=== PATIENT | male | born 1990 | race Caucasian/White ===

== ENCOUNTER 2018-07-07 03:58 | Emergency (ER) | payer OTHER ==
[2018-07-07 04:48] LABS: Basophils % (A) 1 %; Eosinophils # (A) 0.2 k/uL (0-0.7); Eosinophils % (A) 3 %; HCT 43.3 % (39.0-53.0); HGB 13.8 gm/dL (13.0-17.5); Lymphocytes # (A) 2.7 k/uL (1.0-4.8); Lymphocytes % (A) 33 %; MCH 32.5 pg (25.0-35.0); MCHC 31.8 g/dL (31.0-37.0); MCV 102.1 fL (80.0-100.0); Macrocytosis Slight; Mean Platelet Volume 7.4; Monocytes # (A) 0.4 k/uL (0-1.0); Monocytes % (A) 5 %; Neutrophils # (A) 4.5 k/uL (1.3-7.7); Neutrophils % (A) 56 %; Platelet Count 296 k/uL (150-450); RBC 4.24 m/uL (4.30-5.90)
--- NOTE | 2018-07-07 04:51 | ED ---
Seizure HPI - General Chief Complaint: Seizure Stated Complaint: seizure Time Seen by Provider: 07/07/18 04:07 Source: patient, family, EMS Mode of arrival: EMS Limitations: no limitations - History of Present Illness Initial Comments: This patient is 28-year-old man who presents after having had a suspected seizure. The patient does have known seizure disorder though states he was having relatively good seizure control up until a few months ago. He states that he remembers going to bed tonight and then waking up and there were people around him and being told that he was suspected of having had a seizure. The patient's partner is here with him and states that she had been awakened by shaking and saw that he was having seizure activity, and called EMS. The patient does admit that he had missed a dose of Keppra. The patient denies having any injury related to seizure. He states he has just a little bit of headache but he always has this following a seizure. He states that he feels otherwise back his baseline. MD Complaint: seizure -: minutes(s) Description of Episode: tonic-clonic movement -: second(s) Witnessed: yes - by bystander Trauma: No Seizure History: known seizure disorder Place: home Possible Precipitating Event: other Associated Symptoms: denies other symptoms Treatments Prior to Arrival: none - Related Data Allergies Allergy/AdvReac Type Severity Reaction Status Date / Time cat dander Allergy Itching Verified 07/07/18 04:05 Review of Systems ROS Statement: Those systems with pertinent positive or pertinent negative responses have been documented in the HPI. ROS Other: All systems not noted in ROS Statement are negative. Constitutional: Denies: fever, chills Eyes: Denies: vision change Respiratory: Denies: cough, dyspnea Cardiovascular: Denies: chest pain, palpitations Gastrointestinal: Denies: abdominal pain, vomiting, diarrhea Genitourinary: Denies: dysuria Musculoskeletal: Denies: back pain Skin: Denies: rash Neurological: Reports: headache. Denies: weakness, numbness, paresthesias, confusion Past Medical History Past Medical History: Asthma, Seizure Disorder History of Any Multi-Drug Resistant Organisms: None Reported Past Surgical History: No Surgical Hx Reported Smoking Status: Former smoker Past Alcohol Use History: None Reported General Exam Limitations: no limitations General appearance: alert, in no apparent distress Head exam: Present: atraumatic, normocephalic Eye exam: Present: normal appearance, PERRL, EOMI. Absent: scleral icterus, conjunctival injection ENT exam: Present: normal oropharynx Neck exam: Present: normal inspection, full ROM. Absent: tenderness, meningismus Respiratory exam: Present: normal lung sounds bilaterally. Absent: respiratory distress, wheezes, rales, rhonchi, stridor Cardiovascular Exam: Present: regular rate, normal rhythm, normal heart sounds. Absent: systolic murmur, diastolic murmur, rubs, gallop GI/Abdominal exam: Present: soft. Absent: distended, tenderness, guarding, rebound, rigid, mass Extremities exam: Present: normal inspection, normal capillary refill. Absent: pedal edema, calf tenderness Back exam: Present: normal inspection. Absent: CVA tenderness (R), CVA tenderness (L), vertebral tenderness Neurological exam: Present: alert, oriented X3, CN II-XII intact. Absent: motor sensory deficit Skin exam: Present: warm, dry, intact, normal color. Absent: rash Course Vital Signs 07/07/18 04:00 Temperature 99.8 F H Pulse Rate 93 Respiratory 16 Rate Blood Pressure 132/84 O2 Sat by Pulse 98 Oximetry - Reevaluation(s) Reevaluation #1: 07/07/18 06:40 28-year-old man with known history of seizure disorder. The patient was back his baseline and was about to be discharged when he did have another generalized tonic-clonic seizure. He was given 2 mg of Ativan, but the seizure had stopped spontaneously just prior to his receiving the dose of medication. Given that the patient had another seizure, I will provide a loading dose of Keppra and the patient will be observed here, his lungs he does return to baseline without complications may go home and have follow-up with his neurologist, otherwise to be admitted here for neurology consultation. Pending observation at times of sign out Medical Decision Making - Lab Data Result diagrams: 07/07/18 04:09 07/07/18 04:09 Lab Results 07/07/18 07/07/18 Range/Units 04:09 04:09 WBC 8.0 (3.8-10.6) k/uL RBC 4.24 L (4.30-5.90) m/uL Hgb 13.8 (13.0-17.5) gm/dL Hct 43.3 (39.0-53.0) % MCV 102.1 H (80.0-100.0) fL MCH 32.5 (25.0-35.0) pg MCHC 31.8 (31.0-37.0) g/dL RDW 14.0 (11.5-15.5) % Plt Count 296 (150-450) k/uL Neutrophils % 56 % Lymphocytes % 33 % Monocytes % 5 % Eosinophils % 3 % Basophils % 1 % Neutrophils # 4.5 (1.3-7.7) k/uL Lymphocytes # 2.7 (1.0-4.8) k/uL Monocytes # 0.4 (0-1.0) k/uL Eosinophils # 0.2 (0-0.7) k/uL Basophils # 0.0 (0-0.2) k/uL Macrocytosis Slight Sodium 143 (137-145) mmol/L Potassium 4.2 (3.5-5.1) mmol/L Chloride 109 H (98-107) mmol/L Carbon Dioxide 16 L (22-30) mmol/L Anion Gap 18 mmol/L BUN 18 (9-20) mg/dL Creatinine 0.79 (0.66-1.25) mg/dL Est GFR (CKD-EPI)AfAm >90 (>60 ml/min/1.73 sqM) Est GFR (CKD-EPI)NonAf >90 (>60 ml/min/1.73 sqM) Glucose 91 (74-99) mg/dL Calcium 9.6 (8.4-10.2) mg/dL Total Bilirubin 0.5 (0.2-1.3) mg/dL AST 30 (17-59) U/L ALT 32 (21-72) U/L Alkaline Phosphatase 46 (38-126) U/L Total Protein 7.8 (6.3-8.2) g/dL Albumin 4.9 (3.5-5.0) g/dL - EKG Data -: EKG Interpreted by Mt EKG shows normal: sinus rhythm, axis (Normal), intervals (Normal), QRS complexes (Normal), ST-T waves (Normal) Rate: normal (Rate 89 bpm) Interpretation: normal EKG Disposition Clinical Impression: Generalized seizure Disposition: HOME SELF-CARE Condition: Good Instructions: Recurrent Seizures in Adults (ED) Is patient prescribed a controlled substance at d/c from ED?: No Referrals: Lambert Oropeza MD [Primary Care Provider] - 1-2 days Dev Aranda DO [STAFF PHYSICIAN] - 1-2 days
[2018-07-07 04:58] LABS: ALT 32 U/L (21-72); AST 30 U/L (17-59); Albumin 4.9 g/dL (3.5-5.0); Alkaline Phosphatase 46 U/L (38-126); Anion Gap 18 mmol/L; Blood Urea Nitrogen 18 mg/dL (9-20); Calcium 9.6 mg/dL (8.4-10.2); Carbon Dioxide 16 mmol/L (22-30); Chloride 109 mmol/L (98-107); Glucose 91 mg/dL (74-99); Sodium 143 mmol/L (137-145); Total Bilirubin 0.5 mg/dL (0.2-1.3); Total Protein 7.8 g/dL (6.3-8.2)
[2018-07-07 05:01] LABS: Potassium 4.2 mmol/L (3.5-5.1)
[2018-07-07] MEDS ORDERED: levETIRAcetam 500 MG TAB PO STA (06:39)
[2018-07-07] MEDS ORDERED: LORazepam 2 MG/ML INJ IM STA (06:40)
[2018-07-07 06:55] VITALS: RESP 18
[2018-07-07 09:39] VITALS: BP 112/67; PULSE 80; TEMP 98.9
== END 2018-07-07 08:49 | disposition home or self-care (01) ==
LOC: EC 03:58
DX: G40.89 Other seizures (principal); Z87.891 Personal history of nicotine dependence; Z91.048 Other nonmedicinal substance allergy status
CPT/HCPCS: 36415; 93005; 80053; 80177; 85025; 99284; 96372; J2060

== ENCOUNTER 2019-04-03 18:02 | Inpatient (IN) | payer OTHER ==
[2019-04-03 19:40] LABS: Basophils # (A) 0.2 k/uL (0-0.2); Basophils % (A) 2 %; Eosinophils # (A) 0.4 k/uL (0-0.7); Eosinophils % (A) 3 %; HCT 44.5 % (39.0-53.0); HGB 14.7 gm/dL (13.0-17.5); Lymphocytes # (A) 2.3 k/uL (1.0-4.8); Lymphocytes % (A) 22 %; MCH 32.1 pg (25.0-35.0); MCHC 33.1 g/dL (31.0-37.0); Mean Platelet Volume 7.4; Monocytes # (A) 0.5 k/uL (0-1.0); Monocytes % (A) 5 %; Neutrophils # (A) 7.1 k/uL (1.3-7.7); Neutrophils % (A) 66 %; Platelet Count 256 k/uL (150-450); RBC 4.59 m/uL (4.30-5.90); RDW 14.1 % (11.5-15.5); WBC 10.8 k/uL (3.8-10.6)
[2019-04-03 19:44] LABS: Ionized Calcium 5.1 mg/dL (4.5-5.3)
[2019-04-03 19:50] LABS: INR 0.9 (<1.2); Partial Thromboplastin Time 24.9 sec (22.0-30.0); Prothrombin Time 9.8 sec (9.0-12.0)
[2019-04-03 19:55] LABS: ALT 35 U/L (21-72); AST 31 U/L (17-59); African American GFR (CKD) >90 (>60 ml/min/1.73 sqM); Albumin 4.9 g/dL (3.5-5.0); Alkaline Phosphatase 64 U/L (38-126); Anion Gap 11 mmol/L; Blood Urea Nitrogen 17 mg/dL (9-20); Calcium 10.2 mg/dL (8.4-10.2); Carbon Dioxide 26 mmol/L (22-30); Chloride 104 mmol/L (98-107); Creatine Kinase 127 U/L (55-170); Glucose 93 mg/dL (74-99); Magnesium 2.4 mg/dL (1.6-2.3); Potassium 4.2 mmol/L (3.5-5.1); Sodium 141 mmol/L (137-145); Total Bilirubin 0.3 mg/dL (0.2-1.3); Total Protein 8.3 g/dL (6.3-8.2)
--- NOTE | 2019-04-03 20:11 | CT ---
EXAMINATION: CT brain wo con DATE AND TIME: 04/03/2019 7:53 PM CLINICAL INDICATION: Bilateral numbness feet, hands; pain TECHNIQUE: Standard departmental protocol.; 1096; COMPARISON: None. FINDINGS: The calvarium is intact. There is no intracranial hemorrhage. There is no intracranial mass or mass effect. No definite new intra-axial or extra-axial attenuation defect. The paranasal sinuses, middle ear cavities, and mastoid sinus air cells are clear. The orbits are unremarkable. IMPRESSION: NO ACUTE PROCESS.
--- NOTE | 2019-04-03 20:37 | CT ---
EXAMINATION TYPE: CT angio head neck with contrast and with 3-D reconstruction renderings DATE OF EXAM: 04/03/2019 HISTORY: Numbness bilateral feet/hands. Pt denies heart hx. COMPARISON: CT head without contrast 04/03/2019 at 7:[address] DLP: 508.4 mGycm. Automated Exposure Control for Dose Reduction was Utilized. TECHNIQUE: CTA scan of the neck is performed with IV Contrast, patient injected with 50 mL of Isovue 370, axial images are obtained, coronal and sagittal reformatted images are reviewed. Three-D recons tructed images are created on an independent workstation and reviewed. FINDINGS: The bilateral carotid arterial systems are widely patent without significant findings throughout thei r extent. The bilateral vertebral arterial systems are widely patent without significant findings thr oughout their extent. The intracranial anterior and posterior circulation are widely patent without significant findings. The visualized intracranial and intraspinal structures are unremarkable as seen. Airways and visualized lung apices: Unremarkable. Soft tissues of the neck: Unremarkable. Skeletal structures: No acute findings. IMPRESSION: No significant abnormality is seen.
--- NOTE | 2019-04-03 20:43 | XR ---
EXAMINATION: XR chest 2V DATE AND TIME: 04/03/2019 7:49 PM CLINICAL INDICATION: PHH; Weakness TECHNIQUE: Departmental protocol COMPARISON: 03/04/2008 FINDINGS: The lungs are clear. The pleural spaces are negative. The cardiac silhouette is not enlarged. The remainder of the mediastinal silhouette is unremarkable. The skeletal structures and soft tissues are negative for acute findings. IMPRESSION: NO ACUTE PROCESS.
[2019-04-03] MEDS ORDERED: NALOXONE 0.4 MG/ML 1 ML VIAL IV PRN (22:07)
--- NOTE | 2019-04-03 22:07 | ED ---
General Adult HPI - General Chief complaint: Extremity Problem,Nontraumatic Stated complaint: Numbness hands/feet Time Seen by Provider: 04/03/19 18:15 Source: patient Mode of arrival: wheelchair Limitations: no limitations - History of Present Illness Initial comments: The patient is a 21-year-old male who presents to the emergency department with reported ascending neuropathy for the past 3 weeks. The patient does report a history of seizure disorder. He has been on Keppra for many years. He does see Dr. Aranda. States that he did not have any seizures up until last June. States that steadily since then he has had 2-3 seizures per month. His last seizure was one month ago. Reports that shortly after that he began having neuropathy in his feet which then ascended to his calf and then up to his thigh. Reports that as of a week ago it started affecting his hands. He reports that his symptoms are bilateral. Mother reports that the patient has an ataxic gait. Patient does feel off balance when ambulating. Denies any confusion, slurred speech or facial droop. No report of neck pain or back pain. Denies any trauma. Reports that he feels weak in his extremities. 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 He denies any blunt head trauma. No history of similar in the past. No family history of muscular dystrophy. Reports he did see a chiropractor a week ago who adjusted his whole spine. He denies a headache or visual changes. No fevers or chills. There are no other alleviating, precipitating or modifying factors - Related Data Home Medications Medication Instructions Recorded Confirmed Budesonide-Formot 160-4.5 Mcg 2 puff INHALATION RT-BID PRN 07/07/18 04/03/19 [Symbicort 160-4.5 Mcg Inhaler] levETIRAcetam [Keppra] 1,000 mg PO BID 04/03/19 04/03/19 Previous Rx's Medication Instructions Recorded Cyanocobalamin [Vitamin B-12] 1,000 mcg PO WEEKLY #8 tab 04/08/19 Nicotine 21Mg/24Hr Patch [Habitrol] 1 patch TRANSDERM DAILY #14 patch 04/08/19 Allergies Allergy/AdvReac Type Severity Reaction Status Date / Time cat dander AdvReac Itching Verified 04/03/19 18:37 Review of Systems ROS Statement: Those systems with pertinent positive or pertinent negative responses have been documented in the HPI. ROS Other: All systems not noted in ROS Statement are negative. Past Medical History Past Medical History: Asthma, Seizure Disorder History of Any Multi-Drug Resistant Organisms: None Reported Past Surgical History: No Surgical Hx Reported Past Psychological History: No Psychological Hx Reported Smoking Status: Current every day smoker Past Alcohol Use History: Rare Past Drug Use History: Marijuana - Past Family History Father Family Medical History: GERD/Reflux Mother Family Medical History: Hypertension General Exam Limitations: no limitations General appearance: alert, in no apparent distress Head exam: Present: atraumatic, normocephalic, normal inspection Eye exam: Present: normal appearance, PERRL, EOMI. Absent: scleral icterus, conjunctival injection, periorbital swelling ENT exam: Present: normal exam, mucous membranes moist Neck exam: Present: normal inspection. Absent: tenderness, meningismus, lymphadenopathy Respiratory exam: Present: normal lung sounds bilaterally. Absent: respiratory distress, wheezes, rales, rhonchi, stridor Cardiovascular Exam: Present: regular rate, normal rhythm, normal heart sounds. Absent: systolic murmur, diastolic murmur, rubs, gallop, clicks GI/Abdominal exam: Present: soft, normal bowel sounds. Absent: distended, tenderness, guarding, rebound, rigid Extremities exam: Present: normal inspection, full ROM, normal capillary refill. Absent: tenderness, pedal edema, joint swelling, calf tenderness Back exam: Present: normal inspection Neurological exam: Present: alert, oriented X3, CN II-XII intact, other (2/4 reflexes in all extremities. No truncal ataxia. No pronator drift. Intact 2 pt discrimination and soft touch) Psychiatric exam: Present: normal affect, normal mood Skin exam: Present: warm, dry, intact, normal color. Absent: rash Course Vital Signs 04/03/19 04/03/19 04/03/19 18:13 19:29 20:26 Temperature 99.6 F Pulse Rate 103 H 101 H 95 Respiratory 18 18 18 Rate Blood Pressure 177/95 137/97 118/73 O2 Sat by Pulse 99 98 100 Oximetry 04/03/19 23:04 Temperature 98.7 F Pulse Rate 106 H Respiratory 18 Rate Blood Pressure 129/102 O2 Sat by Pulse 96 Oximetry EKG Findings - EKG Comments: EKG Findings:: EKG demonstrates a normal sinus rhythm with a ventricular rate of 102. KS interval 154. QRS 82. QTC 435. There are no acute ST segment elevations Medical Decision Making - Medical Decision Making Upon arrival the patient was placed into room 1. He is hooked up to continuous pulse ox and cardiac monitoring. A 12-lead EKG is performed on the patient. Peripheral IV was established. I did perform a complete neuro exam which demonstrated no lateralizing deficits. Weakness is not appreciated. The patient has intact sensation and reflexes. I did recommend laboratory studies and a CT of the patient's brain. I also performed CT angios of the patient's head because of the reported ataxia. Upon return of the results I did discuss them with the patient. I did call and discuss the case Dr. Worley. I will place Dr. Pardo on consult. I did call discuss the case with her. She was requesting that I attempt a lumbar puncture. I discussed the procedure with the patient. Verbal and written consent was obtained. I did attempt a lumbar puncture however I was unsuccessful at collecting CSF fluid. I did make 2 attempts. I did admit the patient to hospital. I will consult IR for lumbar puncture. The patient was in agreement with the treatment plan and was transferred to the floor in stable condition - Lab Data Result diagrams: 04/04/19 07:11 04/04/19 07:11 Lab Results 04/03/19 04/03/19 04/03/19 Range/Units 19:28 19:28 19:28 WBC 10.8 H (3.8-10.6) k/uL RBC 4.59 (4.30-5.90) m/uL Hgb 14.7 (13.0-17.5) gm/dL Hct 44.5 (39.0-53.0) % MCV 97.0 (80.0-100.0) fL MCH 32.1 (25.0-35.0) pg MCHC 33.1 (31.0-37.0) g/dL RDW 14.1 (11.5-15.5) % Plt Count 256 (150-450) k/uL Neutrophils % 66 % Lymphocytes % 22 % Monocytes % 5 % Eosinophils % 3 % Basophils % 2 % Neutrophils # 7.1 (1.3-7.7) k/uL Lymphocytes # 2.3 (1.0-4.8) k/uL Monocytes # 0.5 (0-1.0) k/uL Eosinophils # 0.4 (0-0.7) k/uL Basophils # 0.2 (0-0.2) k/uL Macrocytosis PT 9.8 (9.0-12.0) sec INR 0.9 (<1.2) APTT 24.9 (22.0-30.0) sec Sodium 141 (137-145) mmol/L Potassium 4.2 (3.5-5.1) mmol/L Chloride 104 (98-107) mmol/L Carbon Dioxide 26 (22-30) mmol/L Anion Gap 11 mmol/L BUN 17 (9-20) mg/dL Creatinine 0.86 (0.66-1.25) mg/dL Est GFR (CKD-EPI)AfAm >90 (>60 ml/min/1.73 sqM) Est GFR (CKD-EPI)NonAf >90 (>60 ml/min/1.73 sqM) Glucose 93 (74-99) mg/dL Estimated Ave Glu mg/dL Hemoglobin A1c (4.0-6.0) % Calcium 10.2 (8.4-10.2) mg/dL Ionized Calcium Santiago 5.1 (4.5-5.3) mg/dL Magnesium 2.4 H (1.6-2.3) mg/dL Total Bilirubin 0.3 (0.2-1.3) mg/dL AST 31 (17-59) U/L ALT 35 (21-72) U/L Alkaline Phosphatase 64 (38-126) U/L Creatine Kinase 127 (55-170) U/L NT-Pro-B Natriuret Pep pg/mL Total Protein 8.3 H (6.3-8.2) g/dL Albumin 4.9 (3.5-5.0) g/dL Vitamin B6 (5-50) ug/L Vitamin B12 (200.0-944.0) pg/mL Vit D 1,25-Dihydroxy (20 - 79) pg/mL Alpha-Tocopherol (500-1800) ug/dL Folate ng/mL TSH 2.210 (0.465-4.680) mIU/L CSF Tube Number CSF Volume CSF Appearance CSF Color CSF RBC (0-10) u/L CSF Tot Nucleated Cells (0-5) u/L CSF Glucose (40-70) mg/dL CSF Total Protein (12-60) mg/dL CSF Albumin (0.0 - 35.0) mg/dL CSF IgG (MS) (0.0 - 3.4) mg/dL Serum Albumin (3500 - 5200) mg/dL CSF IgG/Alb Ratio MS (0.00 - 0.77) CSF IgG Synth Rate MS (0.00 - 3.00) mg/day CSF Oligoclonal Bands IgG (700 - 1600) mg/dL IgA (60.0-350.0) mg/dL MARNI Screen (NEGATIVE) Treponema pallidum Ab (Non-Reactive) 04/03/19 04/03/19 04/04/19 Range/Units 19:28 19:28 07:11 WBC 7.2 (3.8-10.6) k/uL RBC 4.49 (4.30-5.90) m/uL Hgb 14.8 (13.0-17.5) gm/dL Hct 44.3 (39.0-53.0) % MCV 98.6 (80.0-100.0) fL MCH 33.0 (25.0-35.0) pg MCHC 33.4 (31.0-37.0) g/dL RDW 15.4 (11.5-15.5) % Plt Count 271 (150-450) k/uL Neutrophils % 56 % Lymphocytes % 29 % Monocytes % 7 % Eosinophils % 4 % Basophils % 1 % Neutrophils # 4.0 (1.3-7.7) k/uL Lymphocytes # 2.1 (1.0-4.8) k/uL Monocytes # 0.5 (0-1.0) k/uL Eosinophils # 0.3 (0-0.7) k/uL Basophils # 0.1 (0-0.2) k/uL Macrocytosis Slight PT (9.0-12.0) sec INR (<1.2) APTT (22.0-30.0) sec Sodium (137-145) mmol/L Potassium (3.5-5.1) mmol/L Chloride (98-107) mmol/L Carbon Dioxide (22-30) mmol/L Anion Gap mmol/L BUN (9-20) mg/dL Creatinine (0.66-1.25) mg/dL Est GFR (CKD-EPI)AfAm (>60 ml/min/1.73 sqM) Est GFR (CKD-EPI)NonAf (>60 ml/min/1.73 sqM) Glucose (74-99) mg/dL Estimated Ave Glu mg/dL Hemoglobin A1c (4.0-6.0) % Calcium (8.4-10.2) mg/dL Ionized Calcium Santiago (4.5-5.3) mg/dL Magnesium (1.6-2.3) mg/dL Total Bilirubin (0.2-1.3) mg/dL AST (17-59) U/L ALT (21-72) U/L Alkaline Phosphatase (38-126) U/L Creatine Kinase (55-170) U/L NT-Pro-B Natriuret Pep 17 pg/mL Total Protein (6.3-8.2) g/dL Albumin (3.5-5.0) g/dL Vitamin B6 (5-50) ug/L Vitamin B12 (200.0-944.0) pg/mL Vit D 1,25-Dihydroxy (20 - 79) pg/mL Alpha-Tocopherol (500-1800) ug/dL Folate ng/mL TSH (0.465-4.680) mIU/L CSF Tube Number CSF Volume CSF Appearance CSF Color CSF RBC (0-10) u/L CSF Tot Nucleated Cells (0-5) u/L CSF Glucose (40-70) mg/dL CSF Total Protein (12-60) mg/dL CSF Albumin (0.0 - 35.0) mg/dL CSF IgG (MS) (0.0 - 3.4) mg/dL Serum Albumin (3500 - 5200) mg/dL CSF IgG/Alb Ratio MS (0.00 - 0.77) CSF IgG Synth Rate MS (0.00 - 3.00) mg/day CSF Oligoclonal Bands IgG (700 - 1600) mg/dL IgA (60.0-350.0) mg/dL MARNI Screen NEGATIVE (NEGATIVE) Treponema pallidum Ab (Non-Reactive) 04/04/19 04/04/19 04/04/19 Range/Units 07:11 07:11 12:20 WBC (3.8-10.6) k/uL RBC (4.30-5.90) m/uL Hgb (13.0-17.5) gm/dL Hct (39.0-53.0) % MCV (80.0-100.0) fL MCH (25.0-35.0) pg MCHC (31.0-37.0) g/dL RDW (11.5-15.5) % Plt Count (150-450) k/uL Neutrophils % % Lymphocytes % % Monocytes % % Eosinophils % % Basophils % % Neutrophils # (1.3-7.7) k/uL Lymphocytes # (1.0-4.8) k/uL Monocytes # (0-1.0) k/uL Eosinophils # (0-0.7) k/uL Basophils # (0-0.2) k/uL Macrocytosis PT (9.0-12.0) sec INR (<1.2) APTT (22.0-30.0) sec Sodium 144 (137-145) mmol/L Potassium 4.7 (3.5-5.1) mmol/L Chloride 103 (98-107) mmol/L Carbon Dioxide 32 H (22-30) mmol/L Anion Gap 9 mmol/L BUN 17 (9-20) mg/dL Creatinine 0.93 (0.66-1.25) mg/dL Est GFR (CKD-EPI)AfAm >90 (>60 ml/min/1.73 sqM) Est GFR (CKD-EPI)NonAf >90 (>60 ml/min/1.73 sqM) Glucose 89 (74-99) mg/dL Estimated Ave Glu mg/dL Hemoglobin A1c (4.0-6.0) % Calcium 9.9 (8.4-10.2) mg/dL Ionized Calcium Santiago (4.5-5.3) mg/dL Magnesium (1.6-2.3) mg/dL Total Bilirubin (0.2-1.3) mg/dL AST (17-59) U/L ALT (21-72) U/L Alkaline Phosphatase (38-126) U/L Creatine Kinase (55-170) U/L NT-Pro-B Natriuret Pep pg/mL Total Protein (6.3-8.2) g/dL Albumin (3.5-5.0) g/dL Vitamin B6 (5-50) ug/L Vitamin B12 (200.0-944.0) pg/mL Vit D 1,25-Dihydroxy (20 - 79) pg/mL Alpha-Tocopherol (500-1800) ug/dL Folate ng/mL TSH (0.465-4.680) mIU/L CSF Tube Number 4 CSF Volume 2.3 CSF Appearance Clear CSF Color Colorless CSF RBC 1 (0-10) u/L CSF Tot Nucleated Cells 1 (0-5) u/L CSF Glucose 52 (40-70) mg/dL CSF Total Protein 78 H (12-60) mg/dL CSF Albumin 47.9 H (0.0 - 35.0) mg/dL CSF IgG (MS) 4.7 H (0.0 - 3.4) mg/dL Serum Albumin 4,650 (3500 - 5200) mg/dL CSF IgG/Alb Ratio MS 0.44 (0.00 - 0.77) CSF IgG Synth Rate MS 0.00 (0.00 - 3.00) mg/day CSF Oligoclonal Bands See Below IgG 1,040 (700 - 1600) mg/dL IgA (60.0-350.0) mg/dL MARNI Screen (NEGATIVE) Treponema pallidum Ab (Non-Reactive) 04/04/19 04/04/19 04/04/19 Range/Units 16:12 16:12 16:12 WBC (3.8-10.6) k/uL RBC (4.30-5.90) m/uL Hgb (13.0-17.5) gm/dL Hct (39.0-53.0) % MCV (80.0-100.0) fL MCH (25.0-35.0) pg MCHC (31.0-37.0) g/dL RDW (11.5-15.5) % Plt Count (150-450) k/uL Neutrophils % % Lymphocytes % % Monocytes % % Eosinophils % % Basophils % % Neutrophils # (1.3-7.7) k/uL Lymphocytes # (1.0-4.8) k/uL Monocytes # (0-1.0) k/uL Eosinophils # (0-0.7) k/uL Basophils # (0-0.2) k/uL Macrocytosis PT (9.0-12.0) sec INR (<1.2) APTT (22.0-30.0) sec Sodium (137-145) mmol/L Potassium (3.5-5.1) mmol/L Chloride (98-107) mmol/L Carbon Dioxide (22-30) mmol/L Anion Gap mmol/L BUN (9-20) mg/dL Creatinine (0.66-1.25) mg/dL Est GFR (CKD-EPI)AfAm (>60 ml/min/1.73 sqM) Est GFR (CKD-EPI)NonAf (>60 ml/min/1.73 sqM) Glucose (74-99) mg/dL Estimated Ave Glu mg/dL 97 Hemoglobin A1c 5.1 (4.0-6.0) % Calcium (8.4-10.2) mg/dL Ionized Calcium Santiago (4.5-5.3) mg/dL Magnesium (1.6-2.3) mg/dL Total Bilirubin (0.2-1.3) mg/dL AST (17-59) U/L ALT (21-72) U/L Alkaline Phosphatase (38-126) U/L Creatine Kinase (55-170) U/L NT-Pro-B Natriuret Pep pg/mL Total Protein (6.3-8.2) g/dL Albumin (3.5-5.0) g/dL Vitamin B6 (5-50) ug/L Vitamin B12 189.0 L (200.0-944.0) pg/mL Vit D 1,25-Dihydroxy 47 (20 - 79) pg/mL Alpha-Tocopherol 1382 (500-1800) ug/dL Folate 19.8 ng/mL TSH (0.465-4.680) mIU/L CSF Tube Number CSF Volume CSF Appearance CSF Color CSF RBC (0-10) u/L CSF Tot Nucleated Cells (0-5) u/L CSF Glucose (40-70) mg/dL CSF Total Protein (12-60) mg/dL CSF Albumin (0.0 - 35.0) mg/dL CSF IgG (MS) (0.0 - 3.4) mg/dL Serum Albumin (3500 - 5200) mg/dL CSF IgG/Alb Ratio MS (0.00 - 0.77) CSF IgG Synth Rate MS (0.00 - 3.00) mg/day CSF Oligoclonal Bands IgG (700 - 1600) mg/dL IgA (60.0-350.0) mg/dL MARNI Screen (NEGATIVE) Treponema pallidum Ab (Non-Reactive) 04/04/19 04/04/19 04/04/19 Range/Units 16:12 16:12 16:12 WBC (3.8-10.6) k/uL RBC (4.30-5.90) m/uL Hgb (13.0-17.5) gm/dL Hct (39.0-53.0) % MCV (80.0-100.0) fL MCH (25.0-35.0) pg MCHC (31.0-37.0) g/dL RDW (11.5-15.5) % Plt Count (150-450) k/uL Neutrophils % % Lymphocytes % % Monocytes % % Eosinophils % % Basophils % % Neutrophils # (1.3-7.7) k/uL Lymphocytes # (1.0-4.8) k/uL Monocytes # (0-1.0) k/uL Eosinophils # (0-0.7) k/uL Basophils # (0-0.2) k/uL Macrocytosis PT (9.0-12.0) sec INR (<1.2) APTT (22.0-30.0) sec Sodium (137-145) mmol/L Potassium (3.5-5.1) mmol/L Chloride (98-107) mmol/L Carbon Dioxide (22-30) mmol/L Anion Gap mmol/L BUN (9-20) mg/dL Creatinine (0.66-1.25) mg/dL Est GFR (CKD-EPI)AfAm (>60 ml/min/1.73 sqM) Est GFR (CKD-EPI)NonAf (>60 ml/min/1.73 sqM) Glucose (74-99) mg/dL Estimated Ave Glu mg/dL Hemoglobin A1c (4.0-6.0) % Calcium (8.4-10.2) mg/dL Ionized Calcium Santiago (4.5-5.3) mg/dL Magnesium (1.6-2.3) mg/dL Total Bilirubin (0.2-1.3) mg/dL AST (17-59) U/L ALT (21-72) U/L Alkaline Phosphatase (38-126) U/L Creatine Kinase (55-170) U/L NT-Pro-B Natriuret Pep pg/mL Total Protein (6.3-8.2) g/dL Albumin (3.5-5.0) g/dL Vitamin B6 30 (5-50) ug/L Vitamin B12 (200.0-944.0) pg/mL Vit D 1,25-Dihydroxy (20 - 79) pg/mL Alpha-Tocopherol (500-1800) ug/dL Folate ng/mL TSH (0.465-4.680) mIU/L CSF Tube Number CSF Volume CSF Appearance CSF Color CSF RBC (0-10) u/L CSF Tot Nucleated Cells (0-5) u/L CSF Glucose (40-70) mg/dL CSF Total Protein (12-60) mg/dL CSF Albumin (0.0 - 35.0) mg/dL CSF IgG (MS) (0.0 - 3.4) mg/dL Serum Albumin (3500 - 5200) mg/dL CSF IgG/Alb Ratio MS (0.00 - 0.77) CSF IgG Synth Rate MS (0.00 - 3.00) mg/day CSF Oligoclonal Bands IgG (700 - 1600) mg/dL IgA 295.0 (60.0-350.0) mg/dL MARNI Screen (NEGATIVE) Treponema pallidum Ab Non-Reactive (Non-Reactive) Disposition Clinical Impression: Neuropathy Disposition: ADMITTED IP TO THIS [facility] Condition: Stable Is patient prescribed a controlled substance at d/c from ED?: No Decision to Admit Reason: Admit from EC Decision Date: 04/03/19 Decision Time: 22:07
[2019-04-03] MEDS ORDERED: LIDOCAINE 1% INJ 10MG/ML (20 ML MDV) SQ ONE (22:28)
[2019-04-03] MEDS ORDERED: fentaNYL (PF) 50 MCG/ML 2 ML AMP IVP ONE (23:00)
[2019-04-03] MEDS: levETIRAcetam 500 MG TAB PO SCH (23:06)
[2019-04-04 07:45] LABS: Basophils # (A) 0.1 k/uL (0-0.2); Basophils % (A) 1 %; Eosinophils # (A) 0.3 k/uL (0-0.7); Eosinophils % (A) 4 %; HCT 44.3 % (39.0-53.0); HGB 14.8 gm/dL (13.0-17.5); Lymphocytes # (A) 2.1 k/uL (1.0-4.8); Lymphocytes % (A) 29 %; MCHC 33.4 g/dL (31.0-37.0); MCV 98.6 fL (80.0-100.0); Macrocytosis Slight; Mean Platelet Volume 7.9; Monocytes # (A) 0.5 k/uL (0-1.0); Monocytes % (A) 7 %; Neutrophils % (A) 56 %; Platelet Count 271 k/uL (150-450); RBC 4.49 m/uL (4.30-5.90); RDW 15.4 % (11.5-15.5); WBC 7.2 k/uL (3.8-10.6)
[2019-04-04 08:08] LABS: African American GFR (CKD) >90 (>60 ml/min/1.73 sqM); Anion Gap 9 mmol/L; Blood Urea Nitrogen 17 mg/dL (9-20); Calcium 9.9 mg/dL (8.4-10.2); Carbon Dioxide 32 mmol/L (22-30); Chloride 103 mmol/L (98-107); Glucose 89 mg/dL (74-99); Potassium 4.7 mmol/L (3.5-5.1); Sodium 144 mmol/L (137-145)
[2019-04-04] MEDS: levETIRAcetam 500 MG TAB PO SCH ×2 (09:08→21:02)
[2019-04-04 13:41] LABS: Glucose,CSF 52 mg/dL (40-70); Total Protein,CSF 78 mg/dL (12-60)
--- NOTE | 2019-04-04 14:59 | FL ---
Lumbar puncture INDICATION: Pain weakness lower extremities FINDINGS: Fluoroscopy time: 9 seconds. Images obtained: 0. The procedure was explained to the patient. Risks complications and benefits were discussed. Alternat percy were discussed. All questions were answered. Informed consent was obtained. A timeout was performed. The L4-L5 level was chosen for access. Maximum barrier sterile technique was utilized. The skin was c leansed with Betadine and the patient sterilely prepped and draped in the usual manner. The skin and deeper tissue was anesthetized with 1% Lidocaine. Utilizing an 18-gauge spinal needle the spinal maxime l was accessed. Good CSF return was evident. A total of 4 tubes with 3 mL clear CSF were obtained for total of 12 mL. The stylette was replaced and the needle withdrawn. Specimen tubes were labeled and transferred to pathology for additional evaluation. The patient tolerated the procedure well. Procedure instructions were discussed with the patient. The patient was transferred to his room for additional monitoring. Findings: Clear CSF. Specimens sent to pathology for closer evaluation. IMPRESSIONS: 1. Successful Lumbar Puncture for CSF acquisition for analysis.
[2019-04-04 15:22] LABS: Appearance,CSF Clear; CSF Tube Number 4
[2019-04-04 15:23] LABS: CSF Tube Volume 2.3; Nucleated Cells, CSF 1 u/L (0-5); Red Blood Cell,CSF 1 u/L (0-10)
[2019-04-04] MEDS: ACETAMINOPHEN TAB 325 MG TAB PO PRN (16:00)
--- NOTE | 2019-04-04 17:25 | P.HPIM ---
History of Present Illness H&P Date: 04/04/19 Chief Complaint: Numbness and weakness in the hands and legs History of presenting complaint: This is a 29-year-old patient of Dr. Oropeza. About a month ago patient had an episode of seizure. Subsequent to that he was on the ladder was about to fall and decided to jump off. They felt off of that he noticed some tingling in his feet. Subsequent that he's been noticing that this more tingling and numbness in his feet and also being finding it troubled to walk because of weakness. He also notices the symptoms of both his hands. Does no pain in the neck. No pain in the back. Denies any respiratory or diarrheal disease. No fever no chills. Though he feels that his asthma has been acting up a bit. It may be noted that patient is also smoker. Patient is brought into the ER. Neurology was consulted. Lumbar puncture was ordered. Review of systems: GEN.: Tired EYES: None HEENT: None NECK: None RESPIRATORY: Occasional wheezing CARDIOVASCULAR: None GASTROINTESTINAL: None GENITOURINARY: None MUSCULOSKELETAL: None LYMPHATICS: None HEMATOLOGICAL: None PSYCHIATRY: None NEUROLOGICAL: As above Past medical history: Asthma, seizure Social history: Smokes anywhere from half to a pack a day. Lives with his fiance. 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 Does marijuana occasionally. Physical examination: VITAL SIGNS: 99.6, 103, 18, 1 37 x 97, 98% room air GENERAL: BMI 29.8, laying in bed not in distress. EYES: Pupils equal. Conjunctiva normal. HEENT: External appearance of nose and ears normal, oral cavity grossly normal. NECK: JVD not raised; masses not palpable. HEART: First and second heart sounds are normal; no edema. LUNGS: Respiratory rate normal; clear to auscultation. ABDOMEN: Soft, nontender, liver spleen not palpable, no masses palpable. PSYCH: Alert and oriented x3; mood and affect normal. NEUROLOGICAL: Cranial nerves grossly intact; no facial asymmetry, decreased power in both lower extremity and decreased sensation, below mid thigh down to the feet. Patient's reflexes are down symmetrically in both lower extremity. Patient also was discrete sensation in both the arms distally.. LYMPHATICS: No lymph nodes palpable in the axilla and neck INVESTIGATIONS, reviewed in the clinical context: White count 10.8 repeat 7.2 hemoglobin 40.7 potassium 4.2 creatinine 0.86 Computed tomography scan of brain-unremarkable CT angiogram of the neck negative EKG tracing personally reviewed by me-sinus rhythm Chest x-ray film personally reviewed by me-lung fernandez are clear CSF-total protein increased at 78, glucose normal at 52 total depleted cells 1 Assessment: -This patient presents with about 4 weeks of progressive decreased sensation in lower extremity and in the upper extremity. Also's progressive weakness in the same limbs. Gradually ascending. He has decreased sensation examination but the symptoms are more prominent than the signs. Also has decreased reflexes lower extremity. Has elevated CSF protein. He did complain of his asthma playing up That could be from a viral upper respiratory tract infection. 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 -Intermittent asthma -Epilepsy disorder -Chronic nicotine dependence Plan: Patient be admitted to the hospital. We will do neuro checks every 4 hours. Will monitor the forced vital capacity every 4 hours. Lovenox for DVT prophylaxis. Neurology is following the patient. Patient will need immunoglobulin versus plasmapheresis. We'll let neurology make the determi nation was same. Nicotine patch. Past Medical History Past Medical History: Asthma, Seizure Disorder History of Any Multi-Drug Resistant Organisms: None Reported Past Surgical History: No Surgical Hx Reported Past Psychological History: No Psychological Hx Reported Smoking Status: Current every day smoker Past Alcohol Use History: Rare Past Drug Use History: Marijuana - Past Family History Father Family Medical History: GERD/Reflux Mother Family Medical History: Hypertension Medications and Allergies Home Medications Medication Instructions Recorded Confirmed Type Budesonide-Formot 160-4.5 Mcg 2 puff INHALATION RT-BID PRN 07/07/18 04/03/19 History [Symbicort 160-4.5 Mcg Inhaler] levETIRAcetam [Keppra] 1,000 mg PO BID 04/03/19 04/03/19 History Allergies Allergy/AdvReac Type Severity Reaction Status Date / Time cat dander AdvReac Itching Verified 04/03/19 18:37 Physical Exam Vitals: Vital Signs Temp Pulse Pulse Resp BP BP BP 04/04/19 13:04 97.4 F L 85 16 125/79 04/04/19 12:40 87 16 129/86 04/04/19 12:33 96 16 124/85 04/04/19 12:17 92 16 115/82 04/04/19 12:00 90 16 129/85 04/04/19 11:30 98.1 F 83 16 112/75 04/04/19 08:40 16 04/04/19 07:51 97.7 F 79 16 123/79 04/04/19 04:00 97.6 F 80 18 124/83 04/04/19 00:25 97.9 F 75 18 124/73 04/03/19 23:04 98.7 F 106 H 18 129/102 04/03/19 20:26 95 18 118/73 04/03/19 19:29 101 H 18 137/97 04/03/19 18:13 99.6 F 103 H 18 177/95 Pulse Ox 04/04/19 13:04 95 04/04/19 12:40 95 04/04/19 12:33 04/04/19 12:17 96 04/04/19 12:00 97 04/04/19 11:30 98 04/04/19 08:40 04/04/19 07:51 98 04/04/19 04:00 99 04/04/19 00:25 95 04/03/19 23:04 96 04/03/19 20:26 100 04/03/19 19:29 98 04/03/19 18:13 99 Intake and Output 04/04/19 04/04/19 04/04/19 06:59 14:59 22:59 Other: # Voids 1 Results CBC & Chem 7: 04/04/19 07:11 04/04/19 07:11 Labs: Abnormal Lab Results - Last 24 Hours (Table) 04/03/19 04/03/19 04/04/19 Range/Units 19:28 19:28 07:11 WBC 10.8 H (3.8-10.6) k/uL Carbon Dioxide 32 H (22-30) mmol/L Magnesium 2.4 H (1.6-2.3) mg/dL Total Protein 8.3 H (6.3-8.2) g/dL CSF Total Protein (12-60) mg/dL 04/04/19 Range/Units 12:20 WBC (3.8-10.6) k/uL Carbon Dioxide (22-30) mmol/L Magnesium (1.6-2.3) mg/dL Total Protein (6.3-8.2) g/dL CSF Total Protein 78 H (12-60) mg/dL Thrombosis Risk Factor Assmnt - Choose All That Apply Each Factor Represents 1 point: Obesity (BMI >25) Thrombosis Risk Factor Assessment Total Risk Factor Score: 1 Thrombosis Risk Factor Assessment Level: Low Risk
--- NOTE | 2019-04-04 20:06 | P.CNNES ---
History of Present Illness Consult date: 04/04/19 Reason for Consult: Ascending numbness Chief complaint: Ascending numbness History of Present Illness: REFERRING PHYSICIAN: Dr. Miguelina Hernandez HISTORY OF PRESENT ILLNESS: Thank you for allowing me to evaluate Mr. Son Zaragoza. Mr. Zaragoza is a 29-year-old man with past medical history of asthma and seizure disorder, presenting to [facility] for ascending neuropathy for the last 3 weeks. Patient states that about 3 weeks ago, patient fell off a ladder about 2 feet high. Since then, pt started having numbness in his feet bilaterally symmetrically for about a week, and now it involves up to his knee. His hand is also involved with some parts of his arms are also numb. Patient doesn't endorse any specific weakness, but has noticed issues with balance. Susannah bah had gone to a chiropractic office because he thought it was due to a pinched nerve. At that time, the chiropractor had told him that he has some issues with spatial orientation. Patient initially did not remember any recent sickness, but one of his family members remembered patient having a bad course of diarrhea about 3 months ago where patient was not able to work for several days. No one else that time was sick. Patient denies any dysphagia, double vision, headache, nausea, vomiting, shortness of breath, chest pain, diarrhea or constipation at this time. Patient denies any urinary or bowel incontinence. Patient states that he had a blurry/story vision loss of months ago for about a week. Did not have any eye pain. Denies any recent travel. Regarding his seizure disorder, patient had his first episode in high school, and since then he had one episode in June of last year. Patient has been taking Keppra 1000 mg twice a day. When patient was first diagnosed with s eizure disorder, patient had an MRI and EEG. The mother does not remember being told specifically if there was anything abnormal in those 2 studies. PAST MEDICAL HISTORY: Asthma, seizure disorder PAST SURGICAL HISTORY: None reported HOME MEDICATIONS: Keppra 1000 mg twice a day, Symbicort when necessary ALLERGIES: Dander SOCIAL HISTORY: Current every day smoker. One pack per day for about 10 years. Endorses marijuana use. Denies any alcohol abuse history. 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 Currently lives with justin. FAMILY HISTORY: Father with GERD. Mother with hypertension. No family history of neurological conditions. REVIEW OF SYSTEMS: The 14 systems are reviewed and no additional points are identified compared to the review of systems documented history and physical PHYSICAL EXAMINATION: VITAL SIGNS: Temperature 97.7 pulse rate 79 respiratory rate 16 blood pressure 123/79 O2 saturation 98% on room air GEN.: NAD, pleasant and cooperative HEENT: NCAT, sclera without icterus NECK: Supple SKIN AND EXTREMITIES: Warm to touch, no edema NEURO: MENTAL STATUS: Patient alert and oriented to self, place, time. Able to name the current president. Speech fluent, able to name and repeat, following all commands readily. No right and left disorientation, extinction to double simultaneous stimulation, finger agnosia, neglect. CRANIAL NERVES II THROUGH XII: II: Pupils are equal and reactive to light symmetrically. No afferent pupillary defect. Visual fernandez are intact. III, IV, : No ptosis. Extraocular movements full. No nystagmus. V: Facial sensation intact from V1-3. VII. No clear facial asymmetry. VIII: Hearing intact to finger rub bilaterally. IX, X: Symmetric palate elevation. XI: Shoulder shrug intact. XII: Tongue midline without fasciculation or atrophy. MOTOR: Normal bulk/tone. No pronator drift or tremor. Strength is 5/5 throughout all 4 extremities except his interossei bilaterally SENSORY: Intact to temperature, pinprick in all 4 extremities. Decreased to vibration and perception in both upper extremities, left greater than right. Romberg is positive REFLEXES: 2+ throughout. Toes are downgoing. No clonus. COORDINATION: Finger to nose and heel to rousseau intact. No dysmetria. GAIT: Wide-based and stable. Able to toe/heel/tandem walk DIAGNOSTIC TESTING: LABORATORY: WBC 7.2 hemoglobin 14.8 platelets 271 PT 9.8 INR 0.9 sodium 144 potassium 4.7 chloride 103 bicarb 32 BUN 17 creatinine 0.93 AST 31 ALT 35 alk phos 64 TSH 2.210 CSF WBC 1 RBC 1 glucose 52 total protein 78 IMAGING: CT head without contrast 04/03/2019: No acute process. CTA head and neck with contrast 04/03/2019: No significant abnormality is seen ASSESSMENT: Mr. Zaragoza is a 29-year-old man with past medical history of asthma and seizure disorder, presenting to [facility] for ascending neuropathy for the last 3 weeks. There was concern for a demyelinating etiology for patient's symptoms. Lumbar puncture done, showed elevated CSF protein at 78. Patient also with recent history of diarrhea about 3 months ago. Patient's presentat ions with bit unusual as patient is having mostly sensation episodes and very minimal motor deficits along with good reflexes throughout. Sensation deficits do precede more deficits however. A definite diagnosis cannot be made at this time, differential includes acute inflammatory demyelinating polyneuropathy or other demyelinating spectrum. AIDP can be caused by CMV, EBV, HSV, etc. RECOMMENDATIONS: 1. Patient will need to be started started on IVIG 2 g/kg over 3-4 days. I spoke to pharmacy, and unfortunately IVIG is on national shortage, and it is not available at [facility] at this time. Pharmacy spoke to other [facility] facilities, and it appears that [facility] and [facility] may have supplies. Clinical liaison with the pharmacy will be in touch with the other pharmacies to get IVIG brought to [facility]. 2. Labs: IgA, vitamin B12, A1c, vitamin B6, vitamin E, RPR, MARNI 3. Discussed in length with the entire family about the diagnosis and tr eatment. Family showed good understanding. 4. Neurology will continue to follow. Past Medical History Past Medical History: Asthma, Seizure Disorder History of Any Multi-Drug Resistant Organisms: None Reported Past Surgical History: No Surgical Hx Reported Past Psychological History: No Psychological Hx Reported Smoking Status: Current every day smoker Past Alcohol Use History: Rare Past Drug Use History: Marijuana - Past Family History Father Family Medical History: GERD/Reflux Mother Family Medical History: Hypertension Medications and Allergies Home Medications Medication Instructions Recorded Confirmed Type Budesonide-Formot 160-4.5 Mcg 2 puff INHALATION RT-BID PRN 07/07/18 04/03/19 History [Symbicort 160-4.5 Mcg Inhaler] levETIRAcetam [Keppra] 1,000 mg PO BID 04/03/19 04/03/19 History Allergies Allergy/AdvReac Type Severity Reaction Status Date / Time cat dander AdvReac Itching Verified 04/03/19 18:37 Physical Examination - Vital Signs Vital Signs: Vital Signs Temp Pulse Pulse Resp BP BP BP 04/04/19 07:51 97.7 F 79 16 123/79 04/04/19 04:00 97.6 F 80 18 124/83 04/04/19 00:25 97.9 F 75 18 124/73 04/03/19 23:04 98.7 F 106 H 18 129/102 04/03/19 20:26 95 18 118/73 04/03/19 19:29 101 H 18 137/97 04/03/19 18:13 99.6 F 103 H 18 177/95 Pulse Ox 04/04/19 07:51 98 04/04/19 04:00 99 04/04/19 00:25 95 04/03/19 23:04 96 04/03/19 20:26 100 04/03/19 19:29 98 04/03/19 18:13 99 Intake and Output 04/03/19 04/04/19 04/04/19 22:59 06:59 14:59 Other: # Voids 1 Weight 86.183 kg Results - Laboratory Findings CBC and BMP: 04/04/19 07:11 04/04/19 07:11 Abnormal Lab Findings: Abnormal Labs 04/03/19 04/03/19 04/04/19 19:28 19:28 07:11 WBC 10.8 H Carbon Dioxide 32 H Magnesium 2.4 H Total Protein 8.3 H
[2019-04-04] MEDS: ENOXAPARIN 40 MG/0.4 ML SYRINGE SQ SCH (21:02)
[2019-04-04] MEDS: NICOTINE 21MG/24HR PATCH TRANSDERM SCH (21:03)
[2019-04-04 23:39] LABS: Folate, Serum 19.8 ng/mL
[2019-04-05 04:32] LABS: Hemoglobin A1C 5.1 % (4.0-6.0)
[2019-04-05] MEDS: levETIRAcetam 500 MG TAB PO SCH ×2 (10:01→19:45)
[2019-04-05] MEDS: ACETAMINOPHEN TAB 325 MG TAB PO PRN ×3 (10:08→19:45)
[2019-04-05] MEDS: NICOTINE 21MG/24HR PATCH TRANSDERM SCH (10:13)
[2019-04-05 10:42] LABS: Vitamin D, 1, 25-Dihydroxy 47 pg/mL (20 - 79)
--- NOTE | 2019-04-05 12:21 | P.PN ---
Progress Note - Text Progress Note Date: 04/05/19 SUBJECTIVE/INTERVAL EVENTS: No acute overnight events. Patient denies any worsening numbness/tingling or weakness. Patient's fiance Analia is at bedside. Spoke to patient and fiance about the availability of IVIG and also risk factors of IVIG, including thrombotic events and aseptic meningitis. Patient short understanding understanding and agrees to treatment. PHYSICAL EXAMINATION: VITAL SIGNS: Temperature 96.2 pulse rate 70 respiratory rate 20 blood pressure 113/60 O2 saturation 96% on room air GEN.: NAD, pleasant and cooperative HEENT: NCAT, sclera without icterus NECK: Supple SKIN AND EXTREMITIES: Warm to touch, no edema NEURO: MENTAL STATUS: Patient alert and oriented to self, place, time. Able to name the current president. Speech fluent, able to name and repeat, following all commands readily. No right and left disorientation, extinction to double simultaneous stimulation, finger agnosia, neglect. CRANIAL NERVES II THROUGH XII: II: Pupils are equal and reactive to light symmetrically. No afferent pupillary defect. Visual fernandez are intact. III, IV, : No ptosis. Extraocular movements full. No nystagmus. V: Facial sensation intact from V1-3. VII. No clear facial asymmetry. VIII: Hearing intact to finger rub bilaterally. IX, X: Symmetric palate elevation. XI: Shoulder shrug intact. XII: Tongue midline without fasciculation or atrophy. MOTOR: Normal bulk/tone. No pronator drift or tremor. Strength is 5/5 throughout all 4 extremities except his interossei bilaterally SENSORY: Intact to temperature, pinprick in all 4 extremities. Decreased to vibration and perception in both upper extremities, left greater than right. Romberg is positive REFLEXES: 2+ throughout. Toes are downgoing. No clonus. COORDINATION: Finger to nose and heel to rousseau intact. No dysmetria. GAIT: Wide-based and stable. Able to toe/heel/tandem walk DIAGNOSTIC TESTING: LABORATORY: WBC 7.2 hemoglobin 14.8 platelets 271 PT 9.8 INR 0.9 sodium 144 potassium 4.7 chloride 103 bicarb 32 BUN 17 creatinine 0.93 AST 31 ALT 35 alk phos 64 TSH 2.210 CSF WBC 1 RBC 1 glucose 52 total protein 78 Vitamin B12 189 (L) folate 19.8 A1c 5.1 Treponema Ab nonreactive vitamin D 47 IMAGING: CT head without contrast 04/03/2019: No acute process. CTA head and neck with contrast 04/03/2019: No significant abnormality is seen ASSESSMENT: Mr. Zaragoza is a 29-year-old man with past medical history of asthma and seizure disorder, presenting to [facility] for ascending neuropathy for the last 3 weeks. There was concern for a demyelinating etiology for patient's symptoms. Lumbar puncture done, showed elevated CSF protein at 78. Patient also with recent history of diarrhea about 3 months ago. Patient's presentations with bit unusual as patient is having mostly sensation episodes and very minimal motor deficits along with good reflexes throughout. Sensation deficits do precede more deficits however. A definite diagnosis cannot be made at this time, differential includes acute inflammatory demyelinating polyneuropathy or other demyelinating spectrum. AIDP can be caused by CMV, EBV, HSV, etc. RECOMMENDATIONS: 1. Patient will need to be started started on IVIG 2 g/kg over 3-4 days (today, patient will receive 40g). I spoke to pharmacy, and unfortunately IVIG is on national shortage, and it is not available at [facility] at this time. Pharmacy spoke to other [facility] facilities, and it appears that [facility] and [facility] may have supplies. Clinical liaison with the pharmacy will be in touch with the other pharmacies to get IVIG brought to [facility]. 2. Labs: IgA, vitamin B6, vitamin E, RPR, MARNI 3. Vitamin B12 low. We'll start supplementation, 1000mcg daily 3. Discussed in length with the entire family about the diagnosis and treatment. Family showed good understanding. 4. Neurology will continue to follow.
[2019-04-05 14:24] LABS: IgG - CSF 4.7 mg/dL (0.0 - 3.4); IgG/Albumin Index (CSF) 0.44 (0.00 - 0.77)
[2019-04-05] MEDS ORDERED: IMMUNE GLOBULIN (GAMMAGARD) 30 GM in EMPTY BAG 1 BAG IV NR (15:00)
[2019-04-05] MEDS ORDERED: IMMUNE GLOBULIN (GAMMAGARD) 10 GM in EMPTY BAG 1 BAG IV NR (15:00)
[2019-04-05] MEDS: CYANOCOBALAMIN 500 MCG TAB PO SCH (15:01)
[2019-04-05] MEDS: ENOXAPARIN 40 MG/0.4 ML SYRINGE SQ SCH (18:05)
--- NOTE | 2019-04-05 22:46 | P.PN ---
Progress Note - Text Progress Note Date: 04/05/19 Chief Complaint: Numbness and weakness in the hands and legs Interval history: This is a 29-year-old patient of Dr. Oropeza. About a month ago patient had an episode of seizure. Subsequent to that he was on the ladder was about to fall and decided to jump off. They felt off of that he noticed some tingling in his feet. Subsequent that he's been noticing that this more tingling and numbness in his feet and also being finding it troubled to walk because of weakness. He also notices the symptoms of both his hands. Does no pain in the neck. No pain in the back. Denies any respiratory or diarrheal disease. No fever no chills. Though he feels that his asthma has been acting up a bit. It may be noted that patient is also smoker. Patient is brought into the ER. Neurology was consulted. Lumbar puncture was ordered. Patient be diagnosed with [place]illian [place] syndrome Today-patient got first is a immunoglobulin. Clinically not much different. No new issues. Family the bedside. Including his finance and mother. Active Medications Acetaminophen (Tylenol Tab) 650 mg PO Q4HR PRN PRN Reason: Fever and/ or Pain Last Admin: 04/05/19 19:45 Dose: 650 mg Documented by: Cyanocobalamin (Vitamin B-12) 1,000 mcg PO DAILY ON LICENSE OF [facility] Last Admin: 04/05/19 15:01 Dose: 1,000 mcg Documented by: Enoxaparin Sodium (Lovenox) 40 mg SQ 1800 MARGARET Last Admin: 04/05/19 18:05 Dose: 40 mg Documented by: Immune Globulin 30 gm/ IV (Solution) 300 mls @ 0 mls/hr IV .Q0M NR; Protocol Stop: 04/06/19 20:00 Immune Globulin 10 gm/ IV (Solution) 100 mls @ 0 mls/hr IV .Q0M NR; Protocol Stop: 04/07/19 20:00 Immune Globulin 20 gm/ IV (Solution) 200 mls @ 0 mls/hr IV .Q0M NR; Protocol Stop: 04/07/19 20:00 Levetiracetam (Keppra) 1,000 mg PO BID ON LICENSE OF [facility] Last Admin: 04/05/19 19:45 Dose: 1,000 mg Documented by: Melatonin (Melatonin) 3 mg PO HS PRN PRN Reason: Insomnia Naloxone HCl (Narcan) 0.2 mg IV Q2M PRN PRN Reason: Opioid Reversal Nicotine (Habitrol 21mg/24hr Patch) 1 patch TRANSDERM DAILY MARGARET Last Admin: 04/05/19 10:13 Dose: Not Given Documented by: Physical examination: VITAL SIGNS: 97.9, 88, 16, 11 2 x 72, 97% room air GENERAL: Laying in bed, comfortable EYES: Pupils equal. Conjunctiva normal. HEENT: External appearance of nose and ears normal, oral cavity grossly normal. NECK: JVD not raised; masses not palpable. HEART: First and second heart sounds are normal; no edema. LUNGS: Respiratory rate normal; clear to auscultation. ABDOMEN: Soft, nontender, liver spleen not palpable, no masses palpable. PSYCH: Alert and oriented x3; mood and affect normal. NEUROLOGICAL: Cranial nerves grossly intact; no facial asymmetry, decreased power in both lower extremity and decreased sensation, below mid thigh down to the feet. Patient's reflexes are down symmetrically in both lower extremity. Patient also was discrete sensation in both the arms distally.. 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 The symptoms coming off last 3-4 weeks. -Vitamin B12 deficiency -Intermittent asthma -Epilepsy disorder -Chronic nicotine dependence Plan: Discussed with Dr. Pardo the neurologist. Also discussed with family the bedside. Questions were answered. Patient also started on B12 supplements. Patient will need 3-4 days of immunoglobulins depending on clinical response.
[2019-04-05] MEDS: MELATONIN 3 MG TABLET PO PRN (22:50)
[2019-04-06] MEDS: ACETAMINOPHEN TAB 325 MG TAB PO PRN ×2 (05:46→18:15)
[2019-04-06 06:56] LABS: Vitamin E (Alpha Tocopherol) 1382 ug/dL (500-1800)
[2019-04-06] MEDS: levETIRAcetam 500 MG TAB PO SCH ×2 (09:15→20:28)
[2019-04-06] MEDS: CYANOCOBALAMIN 500 MCG TAB PO SCH (09:16)
[2019-04-06] MEDS: NICOTINE 21MG/24HR PATCH TRANSDERM SCH (10:58)
--- NOTE | 2019-04-06 14:18 | P.PN ---
Progress Note - Text Progress Note Date: 04/06/19 SUBJECTIVE/INTERVAL EVENTS: No acute overnight events. Patient tolerated his first dose of IVIG well. Patient has some pressure in the back of his head, which resolved on its own. Patient states that the numbness in his lower extremities feels more like a tingling sensation. PHYSICAL EXAMINATION: VITAL SIGNS: Temperature is 7.5 pulse rate 72 respiratory rate 17 blood pressure 122/75 O2 saturation 97% on room air GEN.: NAD, pleasant and cooperative HEENT: NCAT, sclera without icterus NECK: Supple SKIN AND EXTREMITIES: Warm to touch, no edema NEURO: MENTAL STATUS: Patient alert and oriented to self, place, time. Able to name the current president. Speech fluent, able to name and repeat, following all commands readily. No right and left disorientation, extinction to double simultaneous stimulation, finger agnosia, neglect. CRANIAL NERVES II THROUGH XII: II: Pupils are equal and reactive to light symmetrically. No afferent pupillary defect. Visual fernandez are intact. III, IV, : No ptosis. Extraocular movements full. No nystagmus. V: Facial sensation intact from V1-3. VII. No clear facial asymmetry. VIII: Hearing intact to finger rub bilaterally. IX, X: Symmetric palate elevation. XI: Shoulder shrug intact. XII: Tongue midline without fasciculation or atrophy. MOTOR: Normal bulk/tone. No pronator drift or tremor. Strength is 5/5 throughout all 4 extremities except his interossei bilaterally (strength of his fingers has improved even after the first dose of IVIG) SENSORY: Intact to temperature, pinprick in all 4 extremities. Decreased to vibration and perception in both upper extremities, left greater than right. Romberg is positive REFLEXES: 2+ throughout. Toes are downgoing. No clonus. COORDINATION: Finger to nose and heel to rousseau intact. No dysmetria. GAIT: Wide-based and stable. Able to toe/heel/tandem walk DIAGNOSTIC TESTING: LABORATORY: WBC 7.2 hemoglobin 14.8 platelets 271 PT 9.8 INR 0.9 sodium 144 potassium 4.7 chloride 103 bicarb 32 BUN 17 creatinine 0.93 AST 31 ALT 35 alk phos 64 TSH 2.210 CSF WBC 1 RBC 1 glucose 52 total protein 78 negative for oligoclonal bands. Vitamin B12 189 (L) folate 19.8 A1c 5.1 Treponema Ab nonreactive vitamin D 47 vitamin E 1382 vitamin B6 30 IgA 295 MARNI negative IMAGING: CT head without contrast 04/03/2019: No acute process. CTA head and neck with contrast 04/03/2019: No significant abnormality is seen ASSESSMENT: Mr. Zaragoza is a 29-year-old man with past medical history of asthma and seizure disorder, presenting to [facility] for ascending neuropathy for the last 3 weeks. There was concern for a demyelinating etiology for patient's symptoms. Lumbar puncture done, showed elevated CSF protein at 78. Patient also with recent history of diarrhea about 3 months ago. Patient's presentations with bit unusual as patient is having mostly sensation episodes and very minimal motor deficits along with good reflexes throughout. Sensation deficits do precede more deficits however. A definite diagnosis cannot be made at this time, differential includes acute inflammatory demyelinating polyneuropathy or other demyelinating spectrum. AIDP can be caused by CMV, EBV, HSV, etc. RECOMMENDATIONS: 1. Today is day 2 of IVIG. Patient received 40 g of IVIG yesterday. Patient is currently 30 g of IVIG today and 30 tomorrow. Unfortunately, we were not able to obtain the full treatment dose of IVIG. The only have 100 g of the 150 g needed at this time. Inpatient pharmacy is still trying to obtain more IVIG. If we're not able to obtain the last 50 g of IVIG, patient can be discharged on Tuesday after his third dose of IVIG (total 100 g of IVIG). I will speak to pharmacy on Tuesday Jitendra's ability of IVIG 2. Vitamin B12 low. We'll start supplementation, 1000mcg daily 3. Discussed in length with the entire family about the diagnosis and treatment. Family showed good understanding. 4. Neurology will continue to follow. Feel free to [employer] message me over the weekend if you have any questions or concerns. 5. Patient is to be seen by a neurologist within 2-3 weeks of discharge. ED precautions discussed with the patient.
[2019-04-06] MEDS ORDERED: IMMUNE GLOBULIN (GAMMAGARD) 30 GM in EMPTY BAG 1 BAG IV NR (15:00)
[2019-04-06] MEDS: ENOXAPARIN 40 MG/0.4 ML SYRINGE SQ SCH (17:43)
--- NOTE | 2019-04-06 21:15 | P.PN ---
Progress Note - Text Progress Note Date: 04/06/19 Chief Complaint: Numbness and weakness in the hands and legs Interval history: This is a 29-year-old patient of Dr. Oropeza. About a month ago patient had an episode of seizure. Subsequent to that he was on the ladder was about to fall and decided to jump off. They felt off of that he noticed some tingling in his feet. Subsequent that he's been noticing that this more tingling and numbness in his feet and also being finding it troubled to walk because of weakness. He also notices the symptoms of both his hands. Does no pain in the neck. No pain in the back. Denies any respiratory or diarrheal disease. No fever no chills. Though he feels that his asthma has been acting up a bit. It may be noted that patient is also smoker. Patient is brought into the ER. Neurology was consulted. Lumbar puncture was ordered. 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 No worsening of symptoms. Laying comfortable. No respiratory or [employer]CH[employer]ICIAN symptoms. She has at the bedside. Review of systems: Was done for constitutional, cardiovascular, GI, pulmonary. Neurological, relevant finding as above. Active Medications Acetaminophen (Tylenol Tab) 650 mg PO Q4HR PRN PRN Reason: Fever and/ or Pain Last Admin: 04/06/19 18:15 Dose: 650 mg Documented by: Cyanocobalamin (Vitamin B-12) 1,000 mcg PO DAILY [facility] Last Admin: 04/06/19 09:16 Dose: 1,000 mcg Documented by: Enoxaparin Sodium (Lovenox) 40 mg SQ 1800 [facility] Last Admin: 04/06/19 17:43 Dose: 40 mg Documented by: Immune Globulin 10 gm/ IV (Solution) 100 mls @ 0 mls/hr IV .Q0M NR; Protocol Stop: 04/07/19 20:00 Immune Globulin 20 gm/ IV (Solution) 200 mls @ 0 mls/hr IV .Q0M NR; Protocol Stop: 04/07/19 20:00 Levetiracetam (Keppra) 1,000 mg PO BID [facility] Last Admin: 04/06/19 20:28 Dose: 1,000 mg Documented by: Melatonin (Melatonin) 3 mg PO HS PRN PRN Reason: Insomnia Last Admin: 04/05/19 22:50 Dose: 3 mg Documented by: Naloxone HCl (Narcan) 0.2 mg IV Q2M PRN PRN Reason: Opioid Reversal Nicotine (Habitrol 21mg/24hr Patch) 1 patch TRANSDERM DAILY [facility] Last Admin: 04/06/19 10:58 Dose: Not Given Documented by: Physical examination: VITAL SIGNS: 97.5, 72, 17, 1 22 x 75, 97% room air GENERAL: Laying in bed, comfortable EYES: Pupils equal. Conjunctiva normal. HEENT: External appearance of nose and ears normal, oral cavity grossly normal. NECK: JVD not raised; masses not palpable. HEART: First and second heart sounds are normal; no edema. LUNGS: Respiratory rate normal; clear to auscultation. ABDOMEN: Soft, nontender, liver spleen not palpable, no masses palpable. PSYCH: Alert and oriented x3; mood and affect normal. NEUROLOGICAL: Cranial nerves grossly intact; no facial asymmetry, decreased power in both lower extremity and decreased sensation, below mid thigh down to the feet. Patient's reflexes are down symmetrically in both lower extremity. Patient also was discrete sensation in both the arms distally.. 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 -Vitamin B12 deficiency -Intermittent asthma -Epilepsy disorder -Chronic nicotine dependence Plan: Patient getting his second dose of immunoglobulin today.. Care was discussed with the patient. Questions answered. No new issues. Per neurology patient can get the third dose tomorrow and hopefully can be discharged. ;
[2019-04-06] MEDS: MELATONIN 3 MG TABLET PO PRN (23:40)
[2019-04-07] MEDS: NICOTINE 21MG/24HR PATCH TRANSDERM SCH (08:59)
[2019-04-07] MEDS: CYANOCOBALAMIN 500 MCG TAB PO SCH (08:59)
[2019-04-07] MEDS: levETIRAcetam 500 MG TAB PO SCH ×2 (08:59→19:57)
[2019-04-07] MEDS: ACETAMINOPHEN TAB 325 MG TAB PO PRN ×3 (09:02→23:03)
--- NOTE | 2019-04-07 11:08 | P.PN ---
Progress Note - Text Progress Note Date: 04/07/19 Brief note: Due to shortage of IVIG [place]-wide, we were initially only able to obtain 100g of IVIG when patient is need of 148g of IVIG to be given over 4-5 days. I was able to get in touch with the inpatient pharmacist, Kylee, who called 6 different hospitals, and was able to get the remaining 50g from [facility]. Patient so far has received 40g on 04/05/19 and 30g on 04/06/19. Patient was pending receipt of 30g today, but as we are able to get the remaining 50g IV, patient w ill be getting 40g IVIG today and 40g IVIG tomorrow. I did not personally see and examine this patient today.
[2019-04-07] MEDS ORDERED: IMMUNE GLOBULIN (GAMUNEX-C) 10 GM in EMPTY BAG 1 BAG IV ONE (15:00)
[2019-04-07] MEDS ORDERED: IMMUNE GLOBULIN (GAMMAGARD) 20 GM in EMPTY BAG 1 BAG IV NR (15:00)
[2019-04-07] MEDS ORDERED: IMMUNE GLOBULIN (GAMMAGARD) 10 GM in EMPTY BAG 1 BAG IV NR (15:00)
--- NOTE | 2019-04-07 15:06 | P.PN ---
Progress Note - Text Progress Note Date: 04/07/19 Chief Complaint: Numbness and weakness in the hands and legs Hospital course: This is a 29-year-old patient of Dr. Oropeza. About a month ago patient had an episode of seizure. Subsequent to that he was on the ladder was about to fall and decided to jump off. They felt off of that he noticed some tingling in his feet. Subsequent that he's been noticing that this more tingling and numbness in his feet and also being finding it troubled to walk because of weakness. He also notices the symptoms of both his hands. Does no pain in the neck. No pain in the back. Denies any respiratory or diarrheal disease. No fever no chills. Though he feels that his asthma has been acting up a bit. It may be noted that patient is also smoker. Patient is brought into the ER. Neurology was consulted. Lumbar puncture was ordered. Patient be diagnosed with Guillian [employer] syndrome Today-patient is getting his third dose of immunoglobulin. Dr. Pardo from the neurology spoke to the pharmacy and able to arrange for another dose tomorrow. Patient can feel some numbness and tingling is In the hands and feet. Patient vital capacity is gone up to 9 L. No other new issues. He answered the bedside. Review of systems: Was done for constitutional, cardiovascular, GI, pulmonary. Neurological, relevant finding as above. Active Medications Acetaminophen (Tylenol Tab) 650 mg PO Q4HR PRN PRN Reason: Fever and/ or Pain Last Admin: 04/07/19 09:02 Dose: 650 mg Documented by: Cyanocobalamin (Vitamin B-12) 1,000 mcg PO DAILY [facility] Last Admin: 04/07/19 08:59 Dose: 1,000 mcg Documented by: Enoxaparin Sodium (Lovenox) 40 mg SQ 1800 [facility] Last Admin: 04/06/19 17:43 Dose: 40 mg Documented by: Immune Globulin 10 gm/ IV (Solution) 100 mls @ 0 mls/hr IV .Q0M NR; Protocol Stop: 04/07/19 20:00 Immune Globulin 20 gm/ IV (Solution) 200 mls @ 0 mls/hr IV .Q0M NR; Protocol Stop: 04/07/19 20:00 Immune Globulin 20 gm/ IV (Solution) 200 mls @ 0 mls/hr IV .Q0M ONE; Protocol Stop: 04/08/19 15:01 Immune Globulin 20 gm/ IV (Solution) 200 mls @ 0 mls/hr IV .Q0M ONE; Protocol Stop: 04/08/19 15:01 Levetiracetam (Keppra) 1,000 mg PO BID [facility] Last Admin: 04/07/19 08:59 Dose: 1,000 mg Documented by: Melatonin (Melatonin) 3 mg PO HS PRN PRN Reason: Insomnia Last Admin: 04/06/19 23:40 Dose: 3 mg Documented by: Naloxone HCl (Narcan) 0.2 mg IV Q2M PRN PRN Reason: Opioid Reversal Nicotine (Habitrol 21mg/24hr Patch) 1 patch TRANSDERM DAILY [facility] Last Admin: 04/07/19 08:59 Dose: 1 patch Documented by: Physical examination: VITAL SIGNS: 97.8, 75, 16, 1 26 x 84, 100% room air GENERAL: Laying in bed, comfortable EYES: Pupils equal. Conjunctiva normal. HEENT: External appearance of nose and ears normal, oral cavity grossly normal. NECK: JVD not raised; masses not palpable. HEART: First and second heart sounds are normal; no edema. LUNGS: Respiratory rate normal; clear to auscultation. ABDOMEN: Soft, nontender, liver spleen not palpable, no masses palpable. PSYCH: Alert and oriented x3; mood and affect normal. NEUROLOGICAL: Cranial nerves grossly intact; no facial asymmetry, decreased power in both lower extremity and decreased sensation, below mid thigh down to the feet. Patient's reflexes are down symmetrically in both lower extremity. Patient also was discrete sensation in both the arms distally.. INVESTIGATIONS, reviewed in the clinical context: Vitamin B12-189 Previous testing White count 10.8 repeat 7.2 hemoglobin 40.7 potassium 4.2 creatinine 0.86 Computed tomography scan of brain-unremarkable CT angiogram of the neck negative EKG tracing personally reviewed by me-sinus rhythm Chest x-ray film personally reviewed by me-lung fernandez are clear CSF-total protein increased at 78, glucose normal at 52 total depleted cells 1 Assessment: - Possible Phelps [employer] syndrome. -Vitamin B12 deficiency -Intermittent asthma -Epilepsy disorder -Chronic nicotine dependence Plan: Patient to get his third dose of immunoglobulin today. Discussed with the patient and his fiance. We will have his last dose tomorrow. No other new issues.
[2019-04-07] MEDS: ENOXAPARIN 40 MG/0.4 ML SYRINGE SQ SCH (18:28)
[2019-04-07] MEDS: MELATONIN 3 MG TABLET PO PRN (23:03)
[2019-04-08 04:20] VITALS: RESP 16
[2019-04-08] MEDS: NICOTINE 21MG/24HR PATCH TRANSDERM SCH (07:59)
[2019-04-08] MEDS ORDERED: CYANOCOBALAMIN 500 MCG TAB PO SCH (09:00)
[2019-04-08] MEDS: levETIRAcetam 500 MG TAB PO SCH (09:09)
[2019-04-08 11:47] VITALS: PULSE 80
[2019-04-08] MEDS ORDERED: IMMUNE GLOBULIN (GAMUNEX-C) 20 GM in EMPTY BAG 1 BAG IV ONE (15:00)
[2019-04-08 15:09] VITALS: BP 122/72; TEMP 97.8
[2019-04-08] MEDS: ACETAMINOPHEN TAB 325 MG TAB PO PRN (15:54)
[2019-04-08] MEDS: ENOXAPARIN 40 MG/0.4 ML SYRINGE SQ SCH (16:12)
--- NOTE | 2019-04-08 21:44 | P.DS ---
Providers Date of admission: 04/04/19 17:27 Expected date of discharge: 04/08/19 Attending physician: Liam Worley Consults: 04/03/19 22:08 Consult Physician Urgent Consulting Provider: Makenna Pardo Consult Reason/Comments: acute ascending neuropathy Do you want consulting provider notified?: Yes Primary care physician: Adam [facility]finesse [facility] Course: Hospital course: This is a 29-year-old patient of Dr. Oropeaz. About a month ago patient had an episode of seizure. Subsequent to that he was on the ladder was about to fall and decided to jump off. They felt off of that he noticed some tingling in his feet. Subsequent that he's been noticing that this more tingling and numbness in his feet and also being finding it troubled to walk because of weakness. He also notices the symptoms of both his hands. Does no pain in the neck. No pain in the back. Denies any respiratory or diarrheal disease. No fever no chills. Though he feels that his asthma has been acting up a bit. It may be noted that patient is also smoker. Patient is brought into the ER. Neurology was consulted. Lumbar puncture was ordered. Patient be diagnosed with Guillian [place] syndrome patient was treated with immunoglobulins. Numbness tingling improved in the arms and legs. Started to walk better. Care was discussed with the patient and family the bedside. He'll follow with neurology. consultation: Dr. Pardo from neurology Physical examination: VITAL SIGNS: 97.6, 80, 16, 120/78, 98% room air GENERAL:sitting up comfortable EYES: Pupils equal. Conjunctiva normal. HEENT: External appearance of nose and ears normal, oral cavity grossly normal. NECK: JVD not raised; masses not palpable. HEART: First and second heart sounds are normal; no edema. LUNGS: Respiratory rate normal; clear to auscultation. ABDOMEN: Soft, nontender, liver spleen not palpable, no masses palpable. PSYCH: Alert and oriented x3; mood and affect normal. NEUROLOGICAL: Cranial nerves grossly intact; no facial asymmetry, decreased power in both lower extremity and decreased sensation, below mid thigh down to the feet. Patient's reflexes are down symmetrically in both lower extremity. Patient also was discrete sensation in both the arms distally.. INVESTIGATIONS, reviewed in the clinical context: Vitamin B12-189 Previous testing White count 10.8 repeat 7.2 hemoglobin 40.7 potassium 4.2 creatinine 0.86 Computed tomography scan of brain-unremarkable CT angiogram of the neck negative EKG tracing personally reviewed by me-sinus rhythm Chest x-ray film personally reviewed by me-lung fernandez are clear CSF-total protein increased at 78, glucose normal at 52 total depleted cells 1 discharge diagnosis: - Possible Phelps [place] syndrome. -Vitamin B12 deficiency -Intermittent asthma -Epilepsy disorder -Chronic nicotine dependence disposition: Home. Patient has a walker Patient Condition at Discharge: Stable Plan - Discharge Summary New Discharge Prescriptions: New Nicotine 21Mg/24Hr Patch [Habitrol] 1 patch TRANSDERM DAILY #14 patch Cyanocobalamin [Vitamin B-12] 1,000 mcg PO WEEKLY #8 tab Continue Budesonide-Formot 160-4.5 Mcg [Symbicort 160-4.5 Mcg Inhaler] 2 puff INHALATION RT-BID PRN PRN Reason: Shortness Of Breath levETIRAcetam [Keppra] 1,000 mg PO BID Discharge Medication List Budesonide-Formot 160-4.5 Mcg [Symbicort 160-4.5 Mcg Inhaler] 2 puff INHALATION RT-BID PRN 07/07/18 [History] levETIRAcetam [Keppra] 1,000 mg PO BID 04/03/19 [History] Cyanocobalamin [Vitamin B-12] 1,000 mcg PO WEEKLY #8 tab 04/08/19 [Rx] Nicotine 21Mg/24Hr Patch [Habitrol] 1 patch TRANSDERM DAILY #14 patch 04/08/19 [Rx] Follow up Appointment(s)/Referral(s): Lambert Oropeza MD [Primary Care Provider] - 1-2 days (Offices are closed, please make a follow up appointent Tuesday. You will need a local neurologist referral from Dr. Oropeza.) Todd Anderson MD [STAFF PHYSICIAN] - 1 Week (Offices are closed, please make a follow up appointent Tuesday.) Patient Instructions/Handouts: Guillain-[place] Syndrome (DC) Discharge Disposition: HOME SELF-CARE
== END 2019-04-08 17:54 | disposition home or self-care (01) | DRG 96 ==
LOC: EC 18:02 → 1SOBS 22:07 → OBSVTOIN 04-04 17:27 → 3SCARD 04-04 21:20
PROVIDERS: ADMIT Hospitalist; ATTEND Hospitalist
PROC: 009U3ZX Drainage of Spinal Canal, Percutaneous Approach, Diagnostic (ICD-10-PCS; principal; 2019-04-04)
DX: G61.0 Guillain-Barre syndrome (principal); E53.8 Deficiency of other specified B group vitamins; F17.210 Nicotine dependence, cigarettes, uncomplicated; G40.909 Epilepsy, unspecified, not intractable, without status epilepticus; G47.00 Insomnia, unspecified; G62.9 Polyneuropathy, unspecified; H54.7 Unspecified visual loss; J45.20 Mild intermittent asthma, uncomplicated; W11.XXXD Fall on and from ladder, subsequent encounter; Z79.51 Long term (current) use of inhaled steroids; Z82.49 Family history of ischemic heart disease and other diseases of the circulatory system; J06.9 Acute upper respiratory infection, unspecified; Z83.79 Family history of other diseases of the digestive system
CPT/HCPCS: 36415; 62270; 70450; 70496; 70498; 71046; 80048; 80053; 82040; 82042; 82330; 82550; 82607; 82652; 82746; 82784; 82945; 83036; 83735; 83880; 83916; 84157; 84207; 84443; 84446; 85025; 85610; 85730; 86038; 86780; 87070; 87205; 88108; 89050; 93005; 96372; 96374; 99285

== ENCOUNTER 2019-08-14 00:24 | Emergency (ER) | payer OTHER ==
--- NOTE | 2019-08-14 01:25 | ED ---
Seizure HPI - General Chief Complaint: Seizure Stated Complaint: seizure Time Seen by Provider: 08/14/19 01:07 Source: patient, family Mode of arrival: wheelchair Limitations: no limitations - History of Present Illness Initial Comments: This patient is 29-year-old man with history of seizure disorder, who presents because he has had 3 seizures over the course of the past afternoon. The patient states that he has had an increase in stress and consequently has not slept more than 2 hours a night for the past couple of nights. He states that he has been compliant with his Keppra dosing. The patient states that he felt funny around noon, and then blacked out believes that he had a seizure. He awakened and believes that he had fallen over his coffee table. The patient did have another seizure in the evening and then one just prior to coming in. The patient does believe he has returned to his baseline. MD Complaint: seizure -: hour(s) Description of Episode: loss of consciousness, tonic-clonic movement -: second(s) Witnessed: yes - by bystander Trauma: Yes Seizure History: known seizure disorder Place: home Possible Precipitating Event: lack of sleep, stress Associated Symptoms: denies other symptoms Treatments Prior to Arrival: none - Related Data Home Medications Medication Instructions Recorded Confirmed levETIRAcetam [Keppra] 1,000 mg PO BID 04/03/19 04/26/19 Cyanocobalamin [Vitamin B-12] 4,000 mcg PO WEEKLY 04/13/19 04/26/19 Previous Rx's Medication Instructions Recorded Zolpidem [Ambien] 10 mg PO HS PRN 5 Days #5 tab 08/14/19 Allergies Allergy/AdvReac Type Severity Reaction Status Date / Time fluconazole [From Diflucan] Allergy Itching Verified 08/14/19 00:39 cat dander AdvReac Itching Verified 08/14/19 00:39 Review of Systems ROS Statement: Those systems with pertinent positive or pertinent negative responses have been documented in the HPI. ROS Other: All systems not noted in ROS Statement are negative. Constitutional: Denies: fever, chills Respiratory: Denies: cough, dyspnea Cardiovascular: Denies: chest pain, palpitations Gastrointestinal: Denies: abdominal pain, vomiting, diarrhea Genitourinary: Denies: dysuria, hematuria Musculoskeletal: Denies: back pain Skin: Denies: rash Neurological: Reports: headache. Denies: weakness, numbness, paresthesias, confusion Past Medical History Past Medical History: Asthma, Neurologic Disorder, Seizure Disorder Additional Past Medical History / Comment(s): MS History of Any Multi-Drug Resistant Organisms: None Reported Past Surgical History: No Surgical Hx Reported Past Psychological History: No Psychological Hx Reported Smoking Status: Former smoker Past Alcohol Use History: Occasional Past Drug Use History: Marijuana - Past Family History Father Family Medical History: GERD/Reflux Mother Family Medical History: Hypertension General Exam Limitations: no limitations General appearance: alert, in no apparent distress Head exam: Present: atraumatic, normocephalic Eye exam: Present: normal appearance. Absent: scleral icterus, conjunctival injection Neck exam: Present: full ROM. Absent: tenderness, meningismus Respiratory exam: Present: normal lung sounds bilaterally. Absent: respiratory distress, wheezes, rales, rhonchi, stridor Cardiovascular Exam: Present: regular rate, normal rhythm, normal heart sounds. Absent: systolic murmur, diastolic murmur, rubs, gallop GI/Abdominal exam: Present: soft, normal bowel sounds. Absent: distended, tenderness, guarding, rebound Extremities exam: Present: normal inspection, normal capillary refill. Absent: pedal edema, calf tenderness Back exam: Present: normal inspection. Absent: CVA tenderness (R), CVA tenderness (L) Neurological exam: Present: alert, oriented X3, CN II-XII intact. Absent: motor sensory deficit Skin exam: Present: warm, dry, intact, normal color. Absent: rash Course Vital Signs 08/14/19 08/14/19 00:34 03:54 Temperature 98.3 F Pulse Rate 76 64 Respiratory 20 16 Rate Blood Pressure 118/80 118/82 O2 Sat by Pulse 96 95 Oximetry Medical Decision Making - Lab Data Result diagrams: 08/14/19 02:19 08/14/19 02:19 Lab Results 08/14/19 08/14/19 Range/Units 02:19 02:19 WBC 7.3 (3.8-10.6) k/uL RBC 4.63 (4.30-5.90) m/uL Hgb 14.4 (13.0-17.5) gm/dL Hct 42.7 (39.0-53.0) % MCV 92.1 (80.0-100.0) fL MCH 31.0 (25.0-35.0) pg MCHC 33.7 (31.0-37.0) g/dL RDW 13.2 (11.5-15.5) % Plt Count 306 (150-450) k/uL Neutrophils % 59 % Lymphocytes % 27 % Monocytes % 7 % Eosinophils % 4 % Basophils % 1 % Neutrophils # 4.3 (1.3-7.7) k/uL Lymphocytes # 1.9 (1.0-4.8) k/uL Monocytes # 0.5 (0-1.0) k/uL Eosinophils # 0.3 (0-0.7) k/uL Basophils # 0.1 (0-0.2) k/uL Sodium 142 (137-145) mmol/L Potassium 4.9 (3.5-5.1) mmol/L Chloride 106 (98-107) mmol/L Carbon Dioxide 28 (22-30) mmol/L Anion Gap 8 mmol/L BUN 18 (9-20) mg/dL Creatinine 0.65 L (0.66-1.25) mg/dL Est GFR (CKD-EPI)AfAm >90 (>60 ml/min/1.73 sqM) Est GFR (CKD-EPI)NonAf >90 (>60 ml/min/1.73 sqM) Glucose 92 (74-99) mg/dL Calcium 9.5 (8.4-10.2) mg/dL Total Bilirubin 0.8 (0.2-1.3) mg/dL AST 44 (17-59) U/L ALT 41 (4-49) U/L Alkaline Phosphatase 61 (38-126) U/L Total Protein 8.1 (6.3-8.2) g/dL Albumin 4.7 (3.5-5.0) g/dL Disposition Clinical Impression: Generalized seizure Disposition: HOME SELF-CARE Condition: Good Instructions (If sedation given, give patient instructions): Recurrent Seizures in Adults (ED) Prescriptions: Zolpidem [Ambien] 10 mg PO HS PRN 5 Days #5 tab PRN Reason: Insomnia Is patient prescribed a controlled substance at d/c from ED?: No Referrals: Lambert Oropeza MD [Primary Care Provider] - 1-2 days
[2019-08-14 02:52] LABS: ALT 41 U/L (4-49); AST 44 U/L (17-59); African American GFR (CKD) >90 (>60 ml/min/1.73 sqM); Albumin 4.7 g/dL (3.5-5.0); Alkaline Phosphatase 61 U/L (38-126); Anion Gap 8 mmol/L; Blood Urea Nitrogen 18 mg/dL (9-20); Calcium 9.5 mg/dL (8.4-10.2); Carbon Dioxide 28 mmol/L (22-30); Chloride 106 mmol/L (98-107); Glucose 92 mg/dL (74-99); Non-African American GFR(CKD) >90 (>60 ml/min/1.73 sqM); Sodium 142 mmol/L (137-145); Total Bilirubin 0.8 mg/dL (0.2-1.3); Total Protein 8.1 g/dL (6.3-8.2)
[2019-08-14 02:54] LABS: Potassium 4.9 mmol/L (3.5-5.1)
[2019-08-14 03:05] LABS: Basophils # (A) 0.1 k/uL (0-0.2); Basophils % (A) 1 %; Eosinophils # (A) 0.3 k/uL (0-0.7); Eosinophils % (A) 4 %; HCT 42.7 % (39.0-53.0); HGB 14.4 gm/dL (13.0-17.5); Lymphocytes # (A) 1.9 k/uL (1.0-4.8); Lymphocytes % (A) 27 %; MCHC 33.7 g/dL (31.0-37.0); MCV 92.1 fL (80.0-100.0); Mean Platelet Volume 8.3; Monocytes # (A) 0.5 k/uL (0-1.0); Monocytes % (A) 7 %; Neutrophils # (A) 4.3 k/uL (1.3-7.7); Neutrophils % (A) 59 %; Platelet Count 306 k/uL (150-450); RBC 4.63 m/uL (4.30-5.90); RDW 13.2 % (11.5-15.5); WBC 7.3 k/uL (3.8-10.6)
--- NOTE | 2019-08-14 04:27 | CT ---
EXAMINATION TYPE: CT brain wo con DATE OF EXAM: 08/14/2019 COMPARISON: 04/03/2019 HISTORY: Patient presents for fall after siezure. CT DLP: 1083.4 mGycm Automated exposure control for dose reduction was used. Ventricles and sulci appear normal. There is no mass effect nor midline shift. There is no sign of in tracranial hemorrhage. There is no evidence of cerebral edema. Calvarium appears normal. IMPRESSION: Normal head CT scan. No change.
[2019-08-14 05:14] VITALS: BP 144/79; PULSE 86; RESP 18; TEMP 97.4
== END 2019-08-14 05:12 | disposition home or self-care (01) ==
LOC: EC 00:24
DX: G40.409 Other generalized epilepsy and epileptic syndromes, not intractable, without status epilepticus (principal); F43.9 Reaction to severe stress, unspecified; Z72.820 Sleep deprivation; G35 Multiple sclerosis; Z87.891 Personal history of nicotine dependence; Z88.3 Allergy status to other anti-infective agents; Z91.048 Other nonmedicinal substance allergy status; Z79.899 Other long term (current) drug therapy; W19.XXXA Unspecified fall, initial encounter
CPT/HCPCS: 36415; 70450; 80053; 80177; 85025; 99284

== ENCOUNTER → 2019-08-31 | Outpatient (CLI) | payer OTHER ==
--- NOTE | 2019-08-31 22:19 | EEG ---
ELECTROENCEPHALOGRAM REPORT PROCEDURE DATE: 08/31/2019. ELECTROENCEPHALOGRAM (EEG) REPORT: TECHNIQUE: A routine 18 channel EEG was performed with video using the 10/20 international electrode placement system. HISTORY: Epilepsy. The patient began having recurrent seizures almost 2 years ago. Patient was initially seizure-free for about 10 years. CURRENT MEDICATIONS: Vitamin B12, Ambien, Keppra. STUDY DURATION: 34 minutes. FINDINGS: BACKGROUND: The background activity consisted of 8-9 hertz rhythmic waveforms symmetrically seen over both posterior quadrants. ACTIVATION: Hyperventilation induced physiological slowing. Photic stimulation: Symmetric driving seen. Sleep: Stages I and II sleep noted. ABNORMALITIES: None. IMPRESSION: Normal EEG. No epileptiform activity was present. No seizures were recorded. MMODL / IJN: [id number] /
== END | disposition home or self-care (01) ==
LOC: NEUROMAIN 10:02
PROVIDERS: ATTEND Psychiatry & Neurology Neurology
DX: G40.001 Localization-related (focal) (partial) idiopathic epilepsy and epileptic syndromes with seizures of localized onset, not intractable, with status epilepticus (principal)
CPT/HCPCS: 95816

== ENCOUNTER → 2021-05-19 | Outpatient (CLI) | payer OTHER | END | disposition home or self-care (01) | LOC: LABWHC1 08:45 | PROVIDERS: ATTEND Psychiatry & Neurology Neurology | DX: G40.B09 Juvenile myoclonic epilepsy, not intractable, without status epilepticus (principal) | CPT/HCPCS: 36415; 80177 ==

== ENCOUNTER 2025-01-04 05:14 | Emergency (ER) | payer OTHER ==
[2025-01-04 05:22] VITALS: BP 133/97; PULSE 84; RESP 18; TEMP 98.1
[2025-01-04 05:27] LABS: Glucose,Whole Blood 67 mg/dL (70-110)
--- NOTE | 2025-01-04 05:32 | ED ---
General Adult HPI - General Chief complaint: Overdose Stated complaint: Overdose Time Seen by Provider: 01/04/25 05:22 Source: patient, EMS Mode of arrival: EMS Limitations: no limitations - History of Present Illness Initial comments: Dictation was produced using [employer] dictation software. please excuse any grammatical, word or spelling errors. Chief Complaint: 34-year-old male with overdose History of Present Illness: Patient 34-year-old male presents to the emergency department via EMS after overdose. Patient thought he was snorting cocaine when next he knows he is waking up on the floor. Patient was given Narcan by significant other. Patient states she has not done drugs in quite some time. States that he feels tired at the bedside but no other complaints. The ROS documented in this emergency department record has been reviewed and confirmed by me. Those systems with pertinent positive or negative responses have been documented in the HPI. All other systems are other negative and/or noncontributory. - Related Data Home Medications Medication Instructions Recorded Confirmed levETIRAcetam [Keppra] 1,000 mg PO BID 04/03/19 04/26/19 Cyanocobalamin [Vitamin B-12] 4,000 mcg PO WEEKLY 04/13/19 04/26/19 Previous Rx's Medication Instructions Recorded Zolpidem [Ambien] 10 mg PO HS PRN 5 Days #5 tab 08/14/19 Allergies Allergy/AdvReac Type Severity Reaction Status Date / Time fluconazole [From Diflucan] Allergy Itching Verified 08/14/19 00:39 cat dander AdvReac Itching Verified 08/14/19 00:39 Review of Systems ROS Statement: Those systems with pertinent positive or pertinent negative responses have been documented in the HPI. ROS Other: All systems not noted in ROS Statement are negative. Past Medical History Past Medical History: Asthma, Neurologic Disorder, Seizure Disorder Additional Past Medical History / Comment(s): MS History of Any Multi-Drug Resistant Organisms: None Reported Past Surgical History: No Surgical Hx Reported Past Psychological History: No Psychological Hx Reported Smoking Status: Vaper Past Alcohol Use History: Occasional Past Drug Use History: Cocaine, Marijuana - Past Family History Father Family Medical History: GERD/Reflux Mother Family Medical History: Hypertension General Exam - General Exam Comments Initial Comments: PHYSICAL EXAM: General Impression: Alert and oriented x3, not in acute distress HEENT: Normocephalic atraumatic, extra-ocular movements intact, pupils equal and reactive to light bilaterally, mucous membranes moist. Cardiovascular: Heart regular rate and rhythm Chest: Able to complete full sentences, no retractions, no tachypnea Abdomen: abdomen soft, non-tender, non-distended, no organomegaly Musculoskeletal: Pulses present and equal in all extremities, no peripheral edema Motor: no focal deficits noted Neurological: CN II-XII grossly intact, no focal motor or sensory deficits noted Skin: Intact with no visualized rashes Psych: Normal affect and mood Limitations: no limitations Course Vital Signs 01/04/25 05:15 Temperature 98.1 F Pulse Rate 84 Respiratory 18 Rate Blood Pressure 133/97 O2 Sat by Pulse 97 Oximetry EKG Findings - EKG Comments: EKG Findings:: My EKG interpretation: Ventricular rate 83, sinus rhythm, WA interval 140, QRS 90, QTc 416. No WA prolongation, no QTC prolongation, no ST or T-wave changes noted. Overall, this EKG is unremarkable Medical Decision Making - Medical Decision Making Was pt. sent in by a medical professional or institution (, PA, GENETIC SCIENTIST, urgent care, hospital, or half-way...) When possible be specific @ -No Did you speak to anyone other than the patient for history (EMS, parent, family, police, friend...)? What history was obtained from this source @ -More history obtained from significant other at bedside states that he was nodding off and was given nasal Narcan with resolution of his somnolence Did you review nursing and triage notes (agree or disagree)? Why? @ -I reviewed and agree with nursing and triage notes Were old charts reviewed (outside hosp., previous admission, EMS record, old EKG, old radiological studies, urgent care reports/EKG's, half-way records)? Report findings @ -No old charts were reviewed Differential Diagnosis (chest pain, altered mental status, abdominal pain women, abdominal pain men, vaginal bleeding, musculoskeletal, weakness, fever, dyspnea, syncope, headache, dizziness, GI bleed, back pain, seizure, CVA, palpatations, mental health)? @ -Overdose, opiate overdose, drug overdose EKG interpreted by me (3pts min.). @ -None done X-rays interpreted by me (1pt min.). @ -None done CT interpreted by me (1pt min.). @ -None done U/S interpreted by me (1pt. min.). @ -None done What testing was considered but not performed or refused? (CT, X-rays, U/S, labs)? Why? @ -None What meds were considered but not given or refused? Why? @ -None Was smoking cessation discussed for >3mins.? @ -No Were there social determinants of health that impacted care today? How? (Homel essness, low income, unemployed, alcoholism, drug addiction, transportation, low edu. Level, literacy, decrease access to med. care, detention, rehab)? @ -No Was there de-escalation of care discussed even if they declined (Discuss DNR or withdrawal of care, Hospice)? DNR status @ -No What co-morbidities impacted this encounter? (DM, HTN, Smoking, COPD, CAD, Cancer, CVA, ARF, Chemo, Hep., AIDS, mental health diagnosis, sleep apnea, morbid obesity)? @ -None Was patient admitted / discharged? Hospital course, mention meds given and route, prescriptions, significant lab abnormalities, going to OR and other pertinent info. @ -34-year-old male presents to the emergency department with accidental opiate overdose. He unknowingly started some sort of opiate after thinking that he was snorting cocaine. Vital signs stable. Patient well-appearing at the bedside. Labs unremarkable except for some mild hyperglycemia tolerate oral intake at the bedside. Blood glucose rechecked and improved. Patient reevaluated bedside at 7:09 AM found to be stable to condition. Patient discharged. states that they have more Narcan at home. Did you discuss the management of the patient with other professionals (professionals i.e. , PA, GENETIC SCIENTIST, lab, RT, psych nurse, social media content manager, torch brazer, teacher, licensed mortgage loan officer, ed case manager)? Give summary @ -No Was critical care preformed (if so, how long)? @ -No Undiagnosed new problem with uncertain prognosis? @ -No Drug Therapy requiring intensive monitoring for toxicity (Heparin, Nitro, Insulin, Cardizem)? @ -No Were any procedures done? @ -No Diagnosis/symptom? Acute, or Chronic, or Acute on Chronic? Uncomplicated (without systemic symptoms) or Complicated (systemic symptoms)? @ -Opiate overdose Side effects of treatment? @ -No Exacerbation, Progression, or Severe Exacerbation? @ -No Poses a threat to life or bodily function? How? (Chest pain, [place], [place], pneumonia, PE, COPD, DKA, ARF, appy, cholecystitis, CVA, Diverticulitis, Homicidal, Ginna cidal, threat to staff... and all critical care pts) @ -No - Lab Data Result diagrams: 01/04/25 05:35 01/04/25 05:35 Lab Results 01/04/25 01/04/25 01/04/25 Range/Units 05:26 05:35 05:35 WBC 8.01 (4.50-10.00) 10*3/uL RBC 4.04 L (4.40-5.60) 10*6/uL Hgb 12.5 L (13.0-17.0) g/dL Hct 36.0 L (39.6-50.0) % MCV 89.1 (80.0-97.0) fL MCH 30.9 (27.0-32.0) pg MCHC 34.7 (32.0-37.0) g/dL Plt Count 260 (140-440) 10*3/uL MPV 10.6 (9.5-12.2) fL Immature Gran % (Auto) 0.1 % Neutrophils % 53.4 % Lymphocytes % 26.0 % Monocytes % 9.9 % Eosinophils % 9.9 % Basophils % 0.7 % Immature Gran # 0.01 (0.00-0.04) 10*3/uL Neutrophils # 4.28 (1.80-7.70) 10*3/uL Lymphocytes # 2.08 (0.90-5.00) 10*3/uL Monocytes # 0.79 (0.20-1.00) 10*3/uL Eosinophils # 0.79 H (0.04-0.35) 10*3/uL Basophils # 0.06 (0.00-0.10) 10*3/uL Sodium 139 (137-145) mmol/L Potassium 3.6 (3.5-5.1) mmol/L Chloride 102 (98-107) mmol/L Carbon Dioxide 28 (22-30) mmol/L Anion Gap 9 mmol/L BUN 17 (9-20) mg/dL Creatinine 0.76 (0.66-1.25) mg/dL Est GFR (CKD-EPI)AfAm >90 (>60 ml/min/1.73 sqM) Est GFR (CKD-EPI)NonAf >90 (>60 ml/min/1.73 sqM) Glucose 63 L (74-99) mg/dL POC Glucose (mg/dL) 67 L (70-110) mg/dL POC Glu Permastone Applicator ID Horacio Pike Calcium 8.8 (8.4-10.2) mg/dL Disposition Clinical Impression: Opiate overdose Disposition: HOME SELF-CARE Condition: Fair Instructions (If sedation given, give patient instructions): Adult Overdose (ED) Is patient prescribed a controlled substance at d/c from ED?: No Referrals: Lambert Oropeza MD [Primary Care Provider] - 1-2 days Time of Disposition: 07:09
[2025-01-04 05:55] LABS: Basophils # (A) 0.06 10*3/uL (0.00-0.10); Basophils % (A) 0.7 %; Eosinophils # (A) 0.79 10*3/uL (0.04-0.35); Eosinophils % (A) 9.9 %; HGB 12.5 g/dL (13.0-17.0); Lymphocytes # (A) 2.08 10*3/uL (0.90-5.00); MCH 30.9 pg (27.0-32.0); MCHC 34.7 g/dL (32.0-37.0); MCV 89.1 fL (80.0-97.0); Mean Platelet Volume 10.6 fL (9.5-12.2); Monocytes # (A) 0.79 10*3/uL (0.20-1.00); Monocytes % (A) 9.9 %; Neutrophils # (A) 4.28 10*3/uL (1.80-7.70); Neutrophils % (A) 53.4 %; Platelet Count 260 10*3/uL (140-440); RBC 4.04 10*6/uL (4.40-5.60); RDW 12.2 % (11.5-14.5); WBC 8.01 10*3/uL (4.50-10.00)
[2025-01-04 06:11] LABS: African American GFR (CKD) >90 (>60 ml/min/1.73 sqM); Anion Gap 9 mmol/L; Blood Urea Nitrogen 17 mg/dL (9-20); Calcium 8.8 mg/dL (8.4-10.2); Carbon Dioxide 28 mmol/L (22-30); Chloride 102 mmol/L (98-107); Glucose 63 mg/dL (74-99); Non-African American GFR(CKD) >90 (>60 ml/min/1.73 sqM); Potassium 3.6 mmol/L (3.5-5.1); Sodium 139 mmol/L (137-145)
[2025-01-04 07:19] LABS: Glucose,Whole Blood 116 mg/dL (70-110)
== END 2025-01-04 07:22 | disposition home or self-care (01) ==
LOC: EC 05:14
DX: T40.601A Poisoning by unspecified narcotics, accidental (unintentional), initial encounter (principal); F17.290 Nicotine dependence, other tobacco product, uncomplicated; Z88.3 Allergy status to other anti-infective agents; Z88.8 Allergy status to other drugs, medicaments and biological substances
CPT/HCPCS: 36415; 80048; 85025; 93005; 99284